=== PATIENT | male | born 1985 | race Caucasian/White ===

== ENCOUNTER 2025-08-12 13:06 | Inpatient (IN) | payer OTHER, SELFPAY ==
--- OUTSIDE RECORDS SUMMARY | 2025-08-10 13:29 | XMS_ITS | Encounter Summary ---
Author Organization [facility] Address [address] [place] [address] Care Team Providers Care [employer] Name Role Phone Physician, No Pcp Primary Care Provider Unavaila ble Reason for Visit * Reason Comments Suicidal Encounter Details Date Type Department Care Team (Late st Contact Info) Description 08/10/2025 1:29 PM EST - 08/12/2025 12:40 PM EST Emergency [facility] [address] [place] [id number] Dalia Starr MD [address] [place] [id number] Charleen Bertrand MD [address] [place] [id number] Fortunato Mccarthy MD [address] [place] [phone] Edin Iglesias MD [address] [place] [phone] Rochelle Álvarez MD [address] [place] [id number] Suicidal ideation (Primary Dx) [facility] Social History Tobacco Use Types Packs/Day Years Used Date Smoking Tobacco: Former Cigarettes Tobacco Cessation:Counseling Given: Not Answered Sex and Gender Information Value Date Recorded Sex Assigned at Not on file Legal Sex Male 5:09 PM EST Gender Identity Not on file Sexual Orientation Not on file documented as of this encounter Last Filed Vital Signs Vital Sign Reading Time Taken Comments Blood Pressure 126/75 08/12/2025 11:18 AM EST Pulse 72 08/12/2025 11:18 AM EST Temperature 36.9 C (98.4 F) 08/12/2025 11:18 AM EST Respiratory Rate 16 08/12/2025 11:18 AM EST Oxygen Saturation 99% 08/12/2025 11:18 AM EST Inhaled Oxygen Concentration - - Weight 90.7 kg (200 lb) 08/10/2025 1:19 PM EST Height 177.8 cm (5' 10 ) 08/10/2025 1:19 PM EST Body Mass Index 28.7 08/10/2025 1:19 PM EST documented in this encounter Functional Status * Calculated C-SSRS Risk Score (Lifetime/Recent) Answer Date of Assessment Author High Risk 08/12/2025 9:15 AM Kathryn Beltran RN * [place] Suicide Severity Rating Scale (Screener/Recent Self-Report) Question Answer Date of Assessment Author 1. Wish to be (Past 1 Month) Yes 9:15 AM Kathryn Burrows RN 2. Non-Specific Active Suici tasha Thoughts (Past 1 Month) Yes 08/12/2025 9:15 AM Jolanta Burrows RN 3. Active Suicidal Ideation with any Methods (Not Plan) Without Intent to Act (Past 1 Month) No 08/12/2025 9:15 AM Kathryn Beltran RN 4. Active Suicidal Ideation with Some Intent to Act, Without Specific Plan (Past 1 Month) Yes 08/12/2025 9:15 AM Kathryn Beltran RN 5. Active Suicidal Ideation with Specific Plan and Intent (Past 1 Month) Yes 08/12/2025 9:15 AM Kathryn Burrows RN 6. Suicidal Behavior (Lifetime) Yes 9:15 AM Kathryn Burrows RN 6. Suicidal Behavior (3 Months) Yes 9:15 AM Kathryn Burrows RN documented as of this encounter Medications at Time of Discharge atorvastatin (LIPITOR) 20 mg tablet Take 1 tablet (20 mg total) by mouth at bedtime. 06/16/2025 escitalopram (LEXAPRO) 20 mg tablet Take 1 tablet (20 mg total) by mouth 1 (one) time each day. 06/29/2025 hydrOXYzine HCL (ATARAX) 25 mg tablet Take 1 tablet (25 mg total) by mouth 2 (two) times a day if needed for anxiety. 04/12/2025 Lantus Solostar U-100 Insulin 100 unit/mL (3 mL) injection pen Inject 10 Units under the skin at bedtime. 08/06/2025 metFORMIN (GLUCOPHAGE) 1,000 mg tablet Take 1 tablet (1,000 mg total) by mouth 2 (two) times a day. 06/13/2025 mirtazapine (REMERON) 15 mg tablet Take 1 tablet (15 mg total) by mouth at bedtime. 06/13/2025 documented as of this encounter Discharge Disposition Disposition Code Departure Means Destination [facility] M 3 documented in this encounter Progress Notes * Chitra Gutierrez LCSW - 08/12/2025 8:57 AM EST BED FOUND- Patient has been accepted to [facility], , Dr. Man Quiros, ETA to be determined during Nurse to Nurse. * Rochelle Álvarez MD - 08/12/2025 8:01 AM EST ED Course as of 08/12/25 1247 Sun Aug 10, 2025 1429 Consulted poison control regarding ingestion of five [address] Xanax. Poison control in agreement with laboratory and diagnostic tests ordered. Continuous pulse oximetry to monitor for respiratory depression. Serial EKGs every 2 hours with target QTc less than 500 and QRS less than 100. Patient magnesium of 2. [SO] 1430 ECG 12 lead Interpretation of ECG sinus bradycardia with ventricular rate of 57 bpm. Normal NV at 174, normal QRS at 94. QTc of 443. No acute ST elevations or depressions that would be suggestive of a STEMI or n-STEMI [SO] 1501 Spoke with TESARO [address] [place] [address] and verified that patient was last seen in clinic on 08/06 and given 60mg in person and given 2 60 mg doses (one for 08/07 and 08/08) Considering ingestion, will hold off on methadone until medically cleared. [SO] 1642 Reevaluated patient at this time- stable and maintaining airway, no respiratory depression [SO] 170 ECG 12 lead Second EKG continues to be sinus bradycardia with ventricular rate of 52 bpm. QRS stable at 92 and QTc stable at 460. No acute changes or ST elevations or depressions. [SO] 1754 Drug abuse screen 8a panel, urine(!) Positive for benzodiazepines and cannabinoids, both of which patient admit to [SO] 1754 Salicylate level Do not suspect acute salicylate ingestion [SO] 1754 Ethanol No acute alcohol ingestion [SO] 1755 - In agreement with diagnostic testing. In addition of this given the guidelines of magnesium [SO] 1759 ECG 12 lead Interpretation of EKG is sinus bradycardia with ventricular rate 56 bpm. QRS interval at 92, QTc of455. No ST elevations or depressions. At this time patient was repleted with magnesium, no signs ofrespiratory depression, physical exam unchanged and serial EKGs x 3 with normal QRS and QTc intervals-medically cleared for crisis evaluation [SO] 180 Urinalysis with reflex microscopic and culture Negative for infection [SO] 1805 Thyroid stimulating hormone with reflex to free t4 and free t3 stable [SO] 1805 Methadone, urine(!) Known positive with 60 mg dosing [SO] 1805 Buprenorphine screen, urine negative [SO] 1805 Phencyclidine, urine negative [SO] 1805 Comprehensive metabolic panel(!) No acute electrolyte derrangement, very mild transaminitis with AST at 61 and ALT at 102. Patient without abdominal pain, reports occasional alcohol use. [SO] 185 Patient will be signout to oncoming care team pending crisis evaluation [SO] 1906 SO from ABEL Bueno: hx anxiety and depression, took [address], SI attempt, no hx attempts in past, called poison control, got 3 EKGs, medically cleared, crisis saw him, he is voluntaryadmit, bed search status, takes methadone, last dosed Monday, not giving today, she will order for tomorrow, no other home meds, stopped his lexapro [RG] MonAug 11, 2025 0146 Signed out pending bed search for SI [EK] 0205 Patient signed out to Dr. Bertrand pending bed search [RG] 0802 Home meds ordered. No acute needs during my shift. Patient's care was handed over to the oncoming provider. [EK] 1011 Patient signed out to me - pending bed placement. NAD and HDS. [OR] 1700 Patient awaiting for bed/vital stable no active complaint [MZ] MonAug 12, 2025 0613 No acute needs during my shift. Patient's care was handed over to the oncoming provider. [EK] 0710 Voluntary psych hold. Awaiting bed. [AK] 0848 Patient was sleeping. I awakened him to assess. He is in no distress, resting. Feels comfortable. Awaiting placement. [AK] 0929 Has been accepted to [facility] [AK] ED Course User Index [AK] Rochelle Álvarez MD [EK] Charleen Bertrand MD [MZ] Edin Iglesias MD [OR] Fortunato Mccarthy MD [RG] Dalia Starr MD [SO] ABEL Heller Clinical Impressions as of 08/12/25 1247 Suicidal ideation Send to Specialty Department 1. Suicidal ideation Procedures * Charleen Bertrand MD - 08/12/2025 6:17 AM EST Amine Fodaile This patient's care was signed out to me by the offgoing provider. Please see her/his note for further details regarding initial presentation, history of present illness, physical exam, and medical decision making. At time of signout, the following was pending: Voluntary psychiatric bed placement ED Course as of 08/12/25 0617 Sun Aug 10, 2025 1429 Consulted poison control regarding ingestion of five [address] Xanax. Poison control in agreement with laboratory and diagnostic tests ordered. Continuous pulse oximetry to monitor for respiratory depression. Serial EKGs every 2 hours with target QTc less than 500 and QRS less than 100. Patient magnesium of 2. [SO] 1430 ECG 12 lead Interpretation of ECG sinus bradycardia with ventricular rate of 57 bpm. Normal NV at 174, normal QRS at 94. QTc of 443. No acute ST elevations or depressions that would be suggestive of a STEMI or n-STEMI [SO] 1501 Spoke with TESARO [address], [place] and verified that patient was last seen in clinic on 08/06 and given 60mg in person and given 2 60 mg doses (one for 08/07 and 08/08) Considering ingestion, will hold off on methadone until medically cleared. [SO] 1642 Reevaluated patient at this time- stable and maintaining airway, no respiratory depression [SO] 1701 ECG 12 lead Second EKG continues to be sinus bradycardia with ventricular rate of 52 bpm. QRS stable at 92 and QTc stable at 460. No acute changes or ST elevations or depressions. [SO] 1754 Drug abuse screen 8a panel, urine(!) Positive for benzodiazepines and cannabinoids, both of which patient admit to [SO] 1754 Salicylate level Do not suspect acute salicylate ingestion [SO] 1754 Ethanol No acute alcohol ingestion [SO] 1755 - In agreement with diagnostic testing. In addition of this given the guidelines of magnesium [SO] 1759 ECG 12 lead Interpretation of EKG is sinus bradycardia with ventricular rate 56 bpm. QRS interval at 92, QTc of455. No ST elevations or depressions. At this time patient was repleted with magnesium, no signs ofrespiratory depression, physical exam unchanged and serial EKGs x 3 with normal QRS and QTc intervals-medically cleared for crisis evaluation [SO] 1805 Urinalysis with reflex microscopic and culture Negative for infection [SO] 1805 Thyroid stimulating hormone with reflex to free t4 and free t3 stable [SO] 1805 Methadone, urine(!) Known positive with 60 mg dosing [SO] 1805 Buprenorphine screen, urine negative [SO] 1805 Phencyclidine, urine negative [SO] 1805 Comprehensive metabolic panel(!) No acute electrolyte derrangement, very mild transaminitis with AST at 61 and ALT at 102. Patient without abdominal pain, reports occasional alcohol use. [SO] 185 Patient will be signout to oncoming care team pending crisis evaluation [SO] 1906 SO from ABEL Bueno: hx anxiety and depression, took [address], SI attempt, no hx attempts in past, called poison control, got 3 EKGs, medically cleared, crisis saw him, he is voluntaryadmit, bed search status, takes methadone, last dosed Monday, not giving today, she will order for tomorrow, no other home meds, stopped his lexapro [RG] MonAug 11, 2025 0146 Signed out pending bed search for SI [EK] 0205 Patient signed out to Dr. Bertrand pending bed search [RG] 0802 Home meds ordered. No acute needs during my shift. Patient's care was handed over to the oncoming provider. [EK] 1011 Patient signed out to ne - pending bed placement. NAD and HDS. [OR] 1700 Patient awaiting for bed/vital stable no active complaint [MZ] MonAug 12, 2025 0613 No acute needs during my shift. [facility] [EK] ED Course User Index [EK] Charleen Bertrand MD [MZ] Edin Iglesias MD [OR] Fortunato Mccarthy MD [RG] Dalia Starr MD [SO] ABEL Heller Clinical Impressions as of 08/12/25 0617 Suicidal ideation No orders to display Labs Reviewed METHADONE SCREEN, URINE - Abnormal Result Value Methadone Screen, Urine Positive (*) DRUG ABUSE SCREEN 8A PANEL, URINE - Abnormal Amphetamine Screen, Ur Negative Barbiturate Screen, Ur Negative Benzodiazepine Screen, Ur Positive (*) Cocaine Screen, Ur Negative Opiate Screen, Ur Negative Cannabinoid (THC) Screen, Ur Positive (*) Oxycodone Screen, Ur Negative Fentanyl, Ur Negative Narrative: Assay cutoffs: Amphetamines 1000 ng/mL Barbiturates 200 ng/mL Benzodiazepines 200 ng/mL Cocaine 300 ng/mL Fentanyl 1 ng/mL Opiates 300 ng/mL Oxycodone 100 ng/mL THC 50 ng/mL Semi-quantitative assay for screening purposes only. Unconfirmed screening result should not be used for non-medical purposes. *ALTERNATE METHOD CONFIRMATION DONE UPON REQUEST ONLY* COMPREHENSIVE METABOLIC PANEL - Abnormal Sodium 139 Potassium 3.9 Chloride 102 CO2 27 Anion Gap 10 Glucose 103 (*) BUN 11 Creatinine 0.89 eGFR 110 BUN/Creatinine Ratio 12.4 Calcium 8.1 (*) AST (SGOT) 61 (*) ALT (SGPT) 102 (*) Alkaline Phosphatase 58 Total Protein 6.7 Albumin 4.3 Total Bilirubin 0.2 ACETAMINOPHEN LEVEL - Abnormal Acetaminophen Level <2.0 (*) CBC WITH AUTO DIFFERENTIAL - Abnormal WBC 8.4 RBC 4.50 Hemoglobin 12.7 (*) Hematocrit 37.5 (*) MCV 82.6 MCH 28.0 MCHC 33.9 RDW 12.6 Platelets 295 MPV 11.0 NRBC 0.0 NRBC Absolute 0.00 Neutrophils Relative 77.4 Lymphocytes Relative 16.0 Monocytes Relative 5.0 Eosinophils Relative 0.7 Basophils Relative 0.5 Immature Granulocytes Relative 0.4 Neutrophils Absolute 6.46 Lymphocytes Absolute 1.34 Monocytes Absolute 0.42 Eosinophils Absolute 0.06 Basophils Absolute 0.04 Immature Granulocytes Absolute 0.03 MAGNESIUM - Abnormal Magnesium 1.6 (*) POCT GLUCOSE, BLOOD - Abnormal Glucose POCT 115 (*) POCT GLUCOSE, BLOOD - Abnormal Glucose POCT 113 (*) PHENCYCLIDINE, URINE - Normal PCP Scrn, Ur Negative BUPRENORPHINE SCREEN, URINE - Normal Buprenorphine Screen Urine Negative Narrative: Assay cutoff 5 ng/mL Semi-quantitative assay for screening purposes only. Unconfirmed screening result should not be used for non-medical purposes. *ALTERNATE METHOD CONFIRMATION DONE UPON REQUEST ONLY* THYROID STIMULATING HORMONE WITH REFLEX TO FREE T4 AND FREE T3 - Normal TSH 0.82 ETHANOL - Normal Ethanol Level <3 SALICYLATE LEVEL - Normal Salicylate Level <3.0 URINALYSIS WITH REFLEX MICROSCOPIC AND CULTURE - Normal Specific [place] Urine 1.011 pH, Urine 7.5 Leukocytes, Urine Negative Nitrite, Urine Negative Protein, Urine Trace Glucose, Urine Negative Ketones, Urine Negative Urobilinogen, Urine 0.2 Bilirubin, Urine Negative Blood, Urine Negative POCT GLUCOSE, BLOOD - Normal Glucose POCT 88 POCT GLUCOSE, BLOOD - Normal Glucose POCT 90 URINALYSIS WITH REFLEX MICROSCOPIC AND CULTURE Narrative: The following orders were created for panel order Urinalysis with reflex microscopic and culture. Procedure Abnormality Status --------- ------ Urinalysis with reflex ...[[id number]] Normal Final result Soriano urine culture tube[[id number]] Final result Please view results for these tests on the individual orders. CBC AND DIFFERENTIAL Narrative: The following orders were created for panel order CBC and differential. Procedure Abnormality Status --------- ------ CBC auto differential[[id number]] Abnormal Final result Please view results for these tests on the individual orders. Clinical Impression(s): Final diagnoses: [R45.983] Suicidal ideation Send to Specialty Department Previous Medications ATORVASTATIN (LIPITOR) 20 MG TABLET Take 1 tablet (20 mg total) by mouth at bedtime. ESCITALOPRAM (LEXAPRO) 20 MG TABLET Take 1 tablet (20 mg total) by mouth 1 (one) time each day. HYDROXYZINE HCL (ATARAX) 25 MG TABLET Take 1 tablet (25 mg total) by mouth 2 (two) times a day if needed for anxiety. LANTUS SOLOSTAR U-100 INSULIN 100 UNIT/ML (3 ML) INJECTION PEN Inject 10 Units under the skin at bedtime. METFORMIN (GLUCOPHAGE) 1,000 MG TABLET Take 1 tablet (1,000 mg total) by mouth 2 (two) times a day. MIRTAZAPINE (REMERON) 15 MG TABLET Take 1 tablet (15 mg total) by mouth at bedtime. ED Medication Administration from 08/10/2025 1307 to 08/12/2025 0617 Date/Time Order Dose Route Action Action by 08/10/2025 1800 EST magnesium oxide (MAG-OX) tablet 400 mg 400 mg oral Given Alleano, A 08/11/2025 0905 EST magnesium oxide (MAG-OX) tablet 400 mg 400 mg oral Given Maco, K 08/11/2025 0904 EST methadone (METHADOSE) dispersible tablet 60 mg 60 mg oral Given Maco, K 08/11/20252158 EST atorvastatin (LIPITOR) tablet 20 mg 20 mg oral Given Thomas, B 08/11/2025 0906 EST escitalopram (LEXAPRO) tablet 20 mg 20 mg oral Given Maco, K 08/11/2025 0904 EST metFORMIN (GLUCOPHAGE) tablet 1,000 mg 1,000 mg oral Given Maco, K 08/11/2025 215 EST metFORMIN (GLUCOPHAGE) tablet 1,000 mg 1,000 mg oral Given Thomas, B 08/11/20252158 EST mirtazapine (REMERON) tablet 15 mg 15 mg oral Given Thomas, B 08/11/20252222 EST insulin glargine (LANTUS) injection 10 Units 10 Units subcutaneous Not Given Thomas, B 08/11/20252222 EST insulin glargine (LANTUS) injection 10 Units -- subcutaneous Held by provider Mone Iglesias 08/12/2025 2100 EST insulin glargine (LANTUS) injection 10 Units -- subcutaneous Dose Auto Held Mone Iglesias 08/13/2025 2100 EST insulin glargine (LANTUS) injection 10 Units -- subcutaneous Dose Auto Held Mone Iglesias 08/14/2025 2100 EST insulin glargine (LANTUS) injection 10 Units -- subcutaneous Dose Auto Held Mone Iglesias 08/15/2025 2100 EST insulin glargine (LANTUS) injection 10 Units -- subcutaneous Dose Auto Held (none) 08/16/2025 2100 EST insulin glargine (LANTUS) injection 10 Units -- subcutaneous Dose Auto Held (none) 08/17/2025 2100 EST insulin glargine (LANTUS) injection 10 Units -- subcutaneous Dose Auto Held (none) 08/11/2025 0805 EST insulin lispro injection 1-6 Units -- subcutaneous Not Given Maco, K 08/11/2025 1311 EST insulin lispro injection 1-6 Units -- subcutaneous Not Given Maco, K 08/11/2025 1728 EST insulin lispro injection 1-6 Units -- subcutaneous Not Given Maco, K * Charleen Bertrand MD - 08/11/2025 8:47 AM EST Marlene Ceballos This patient's care was signed out to me by the offgoing provider. Please see her/his note for further details regarding initial presentation, history of present illness, physical exam, and medical decision making. At time of signout, the following was pending: See ED course below ED Course as of 08/12/25 0613 Amira Aug 10, 2025 1429 Consulted poison control regarding ingestion of five [address] Xanax. Poison control in agreement with laboratory and diagnostic tests ordered. Continuous pulse oximetry to monitor for respiratory depression. Serial EKGs every 2 hours with target QTc less than 500 and QRS less than 100. Patient magnesium of 2. [SO] 1430 ECG 12 lead Interpretation of ECG sinus bradycardia with ventricular rate of 57 bpm. Normal NV at 174, normal QRS at 94. QTc of 443. No acute ST elevations or depressions that would be suggestive of a STEMI or n-STEMI [SO] 1501 Spoke with TESARO [address], [place] and verified that patient was last seen in clinic on 08/06 and given 60mg in person and given 2 60 mg doses (one for 08/07 and 08/08) Considering ingestion, will hold off on methadone until medically cleared. [SO] 1642 Reevaluated patient at this time- stable and maintaining airway, no respiratory depression [SO] 1701 ECG 12 lead Second EKG continues to be sinus bradycardia with ventricular rate of 52 bpm. QRS stable at 92 and QTc stable at 460. No acute changes or ST elevations or depressions. [SO] 1754 Drug abuse screen 8a panel, urine(!) Positive for benzodiazepines and cannabinoids, both of which patient admit to [SO] 1754 Salicylate level Do not suspect acute salicylate ingestion [SO] 1754 Ethanol No acute alcohol ingestion [SO] 1755 - In agreement with diagnostic testing. In addition of this given the guidelines of magnesium [SO] 1759 ECG 12 lead Interpretation of EKG is sinus bradycardia with ventricular rate 56 bpm. QRS interval at 92, QTc of455. No ST elevations or depressions. At this time patient was repleted with magnesium, no signs of respiratory depression, physical exam unchanged and serial EKGs x 3 with normal QRS and QTc intervals- medically cleared for crisis evaluation [SO] 1805 Urinalysis with reflex microscopic and culture Negative for infection [SO] 1805 Thyroid stimulating hormone with reflex to free t4 and free t3 stable [SO] 1805 Methadone, urine(!) Known positive with 60 mg dosing [SO] 1805 Buprenorphine screen, urine negative [SO] 1805 Phencyclidine, urine negative [SO] 1805 Comprehensive metabolic panel(!) No acute electrolyte derrangement, very mild transaminitis with AST at 61 and ALT at 102. Patient without abdominal pain, reports occasional alcohol use. [SO] 185 Patient will be signout to oncoming care team pending crisis evaluation [SO] 1906 SO from ABEL Bueno: hx anxiety and depression, took [address], SI attempt, no hx attempts in past, called poison control, got 3 EKGs, medically cleared, crisis saw him, he is voluntaryadmit, bed search status, takes methadone, last dosed Monday, not giving today, she will order for tomorrow, no other home meds, stopped his lexapro [RG] MonAug 11, 2025 0146 Signed out pending bed search for SI [EK] 0205 Patient signed out to Dr. Bertrand pending bed search [RG] 0802 Home meds ordered. No acute needs during my shift. Patient's care was handed over to the oncoming provider. [EK] 1011 Patient signed out to ne - pending bed placement. NAD and HDS. [OR] 1700 Patient awaiting for bed/vital stable no active complaint [MZ] MonAug 12, 2025 0613 No acute needs during my shift. [facility]. [EK] ED Course User Index [EK] Charleen Bertrand MD [MZ] Edin Iglesias MD [OR] Fortunato Mccarthy MD [RG] Dalia Starr MD [SO] ABEL Heller Clinical Impressions as of 08/12/25 0613 Suicidal ideation No orders to display Labs Reviewed METHADONE SCREEN, URINE - Abnormal Result Value Methadone Screen, Urine Positive (*) DRUG ABUSE SCREEN 8A PANEL, URINE - Abnormal Amphetamine Screen, Ur Negative Barbiturate Screen, Ur Negative Benzodiazepine Screen, Ur Positive (*) Cocaine Screen, Ur Negative Opiate Screen, Ur Negative Cannabinoid (THC) Screen, Ur Positive (*) Oxycodone Screen, Ur Negative Fentanyl, Ur Negative Narrative: Assay cutoffs: Amphetamines 1000 ng/mL Barbiturates 200 ng/mL Benzodiazepines 200 ng/mL Cocaine 300 ng/mL Fentanyl 1 ng/mL Opiates 300 ng/mL Oxycodone 100 ng/mL THC 50 ng/mL Semi-quantitative assay for screening purposes only. Unconfirmed screening result should not be used for non-medical purposes. *ALTERNATE METHOD CONFIRMATION DONE UPON REQUEST ONLY* COMPREHENSIVE METABOLIC PANEL - Abnormal Sodium 139 Potassium 3.9 Chloride 102 CO2 27 Anion Gap 10 Glucose 103 (*) BUN 11 Creatinine 0.89 eGFR 110 BUN/Creatinine Ratio 12.4 Calcium 8.1 (*) AST (SGOT) 61 (*) ALT (SGPT) 102 (*) Alkaline Phosphatase 58 Total Protein 6.7 Albumin 4.3 Total Bilirubin 0.2 ACETAMINOPHEN LEVEL - Abnormal Acetaminophen Level <2.0 (*) CBC WITH AUTO DIFFERENTIAL - Abnormal WBC 8.4 RBC 4.50 Hemoglobin 12.7 (*) Hematocrit 37.5 (*) MCV 82.6 MCH 28.0 MCHC 33.9 RDW 12.6 Platelets 295 MPV 11.0 NRBC 0.0 NRBC Absolute 0.00 Neutrophils Relative 77.4 Lymphocytes Relative 16.0 Monocytes Relative 5.0 Eosinophils Relative 0.7 Basophils Relative 0.5 Immature Granulocytes Relative 0.4 Neutrophils Absolute 6.46 Lymphocytes Absolute 1.34 Monocytes Absolute 0.42 Eosinophils Absolute 0.06 Basophils Absolute 0.04 Immature Granulocytes Absolute 0.03 MAGNESIUM - Abnormal Magnesium 1.6 (*) POCT GLUCOSE, BLOOD - Abnormal Glucose POCT 115 (*) PHENCYCLIDINE, URINE - Normal PCP Scrn, Ur Negative BUPRENORPHINE SCREEN, URINE - Normal Buprenorphine Screen Urine Negative Narrative: Assay cutoff 5 ng/mL Semi-quantitative assay for screening purposes only. Unconfirmed screening result should not be used for non-medical purposes. *ALTERNATE METHOD CONFIRMATION DONE UPON REQUEST ONLY* THYROID STIMULATING HORMONE WITH REFLEX TO FREE T4 AND FREE T3 - Normal TSH 0.82 ETHANOL - Normal Ethanol Level <3 SALICYLATE LEVEL - Normal Salicylate Level <3.0 URINALYSIS WITH REFLEX MICROSCOPIC AND CULTURE - Normal Specific [place] Urine 1.011 pH, Urine 7.5 Leukocytes, Urine Negative Nitrite, Urine Negative Protein, Urine Trace Glucose, Urine Negative Ketones, Urine Negative Urobilinogen, Urine 0.2 Bilirubin, Urine Negative Blood, Urine Negative URINALYSIS WITH REFLEX MICROSCOPIC AND CULTURE Narrative: The following orders were created for panel order Urinalysis with reflex microscopic and culture. Procedure Abnormality Status --------- ------ Urinalysis with reflex ...[[id number]] Normal Final result Soriano urine culture tube[[id number]] Final result Please view results for these tests on the individual orders. CBC AND DIFFERENTIAL Narrative: The following orders were created for panel order CBC and differential. Procedure Abnormality Status --------- ------ CBC auto differential[[id number]] Abnormal Final result Please view results for these tests on the individual orders. Clinical Impression(s): Final diagnoses: [R42.299] Suicidal ideation Send to Specialty Department Previous Medications ATORVASTATIN (LIPITOR) 20 MG TABLET Take 1 tablet (20 mg total) by mouth at bedtime. ESCITALOPRAM (LEXAPRO) 20 MG TABLET Take 1 tablet (20 mg total) by mouth 1 (one) time each day. HYDROXYZINE HCL (ATARAX) 25 MG TABLET Take 1 tablet (25 mg total) by mouth 2 (two) times a day if needed for anxiety. LANTUS SOLOSTAR U-100 INSULIN 100 UNIT/ML (3 ML) INJECTION PEN Inject 10 Units under the skin at bedtime. METFORMIN (GLUCOPHAGE) 1,000 MG TABLET Take 1 tablet (1,000 mg total) by mouth 2 (two) times a day. MIRTAZAPINE (REMERON) 15 MG TABLET Take 1 tablet (15 mg total) by mouth at bedtime. ED Medication Administration from 08/10/2025 1307 to 08/11/2025 0847 Date/Time Order Dose Route Action Action by 08/10/2025 1800 EST magnesium oxide (MAG-OX) tablet 400 mg 400 mg oral Given Don Nassar 08/11/2025 0805 EST insulin lispro injection 1-6 Units -- subcutaneous Not Given Rajani Dewey * ABEL Heller - 08/10/2025 5:02 PM EST HPI Chief Complaint Patient presents with Suicidal HPI Mr. Ceballos is a 39 year old male with anxiety, depression, opiate use now on methadone reporting suicidal ideation with plan of taking benzodiazepines. Patient reports that he has acted on suicidal ideation before. Patient was previously hospitalized in [facility] however came to this area seeking help. Patient reports that this morning he took [address] and each of 5 mg tablets for a total of 25 mg. Ingestion at approximately 9am. No other ingestions of substances. Dosed methadone 60 mg daily, last dose on Monday. Denies any IV drug use, reports frequent Xanax use that he purchases from the street. Reports tobacco use approximately 3 cigarettes as well as occasional marijuana use and alcohol use. Denies any visual, auditory, tactile hallucinations. No homicidal ideation. Clinical Opiate Withdrawal Scale Total Score: 0 [place] Coma Scale Score: 15 Patient History Medical History[1] Surgical History[2] Family History[3] Social History Tobacco Use Smoking status: Former Types: Cigarettes Smokeless tobacco: Not on file Substance Use Topics Alcohol use: Not on file Drug use: Not on file Review of Systems Review of Systems Physical Exam ED Triage Vitals Temp Pulse Resp BP -- -- -- -- SpO2 Temp src Heart Rate Source Patient Position -- -- -- -- BP Location FiO2 (%) -- -- Physical Exam Vitals and nursing note reviewed. Constitutional: General: He is not in acute distress. Appearance: Normal appearance. He is normal weight. He is not ill-appearing, toxic-appearing or diaphoretic. HENT: Head: Normocephalic and atraumatic. Right Ear: External ear normal. There is no impacted cerumen. Left Ear: External ear normal. There is no impacted cerumen. Nose: Nose normal. No congestion or rhinorrhea. Eyes: General: No scleral icterus. Right eye: No discharge. Left eye: No discharge. Extraocular Movements: Extraocular movements intact. Conjunctiva/sclera: Conjunctivae normal. Pupils: Pupils are equal, round, and reactive to light. Cardiovascular: Rate and Rhythm: Normal rate and regular rhythm. Pulses: Normal pulses. Heart sounds: Normal heart sounds. No murmur heard. No friction rub. No gallop. Pulmonary: Effort: Pulmonary effort is normal. No respiratory distress. Breath sounds: Normal breath sounds. No stridor. No wheezing, rhonchi or rales. Chest: Chest wall: No tenderness. Abdominal: General: Abdomen is flat. There is no distension. Palpations: Abdomen is soft. Tenderness: There is no abdominal tenderness. There is no guarding or rebound. Hernia: No hernia is present. Musculoskeletal: General: No swelling, tenderness, deformity or signs of injury. Normal range of motion. Cervical back: Normal range of motion. No rigidity or tenderness. Right lower leg: No edema. Left lower leg: No edema. Comments: Independently ambulatory with no assistive devices Skin: General: Skin is warm and dry. Capillary Refill: Capillary refill takes less than 2 seconds. Coloration: Skin is not jaundiced or pale. Findings: No bruising, erythema, lesion or rash. Neurological: Mental Status: He is alert and oriented to person, place, and time. Mental status is at baseline. Motor: No weakness. Gait: Gait normal. Comments: No fasciculations, no ankle clonus ED Course & [facility] ED Course as of 08/11/252011 Adrian Aug 10, 2025 1429 Consulted poison control regarding ingestion of five [address] Xanax[address] Poison control in agreement with laboratory and diagnostic tests ordered. Continuous pulse oximetry to monitor for respiratory depression. Serial EKGs every 2 hours with target QTc less than 500 and QRS less than 100. Patient magnesium of 2. [SO] 1430 ECG 12 lead Interpretation of ECG sinus bradycardia with ventricular rate of 57 bpm. Normal NV at 174, normal QRS at 94. QTc of 443. No acute ST elevations or depressions that would be suggestive of a STEMI or n-STEMI [SO] 1501 Spoke with TESARO [address] [place] [address] and verified that patient was last seen in clinic on 08/06 and given 60mg in person and given 2 60 mg doses (one for 08/07 and 08/08) Considering ingestion, will hold off on methadone until medically cleared. [SO] 1642 Reevaluated patient at this time- stable and maintaining airway, no respiratory depression [SO] 1701 ECG 12 lead Second EKG continues to be sinus bradycardia with ventricular rate of 52 bpm. QRS stable at 92 and QTc stable at 460. No acute changes or ST elevations or depressions. [SO] 1754 Drug abuse screen 8a panel, urine(!) Positive for benzodiazepines and cannabinoids, both of which patient admit to [SO] 1754 Salicylate level Do not suspect acute salicylate ingestion [SO] 1754 Ethanol No acute alcohol ingestion [SO] 1755 - In agreement with diagnostic testing. In addition of this given the guidelines of magnesium [SO] 1759 ECG 12 lead Interpretation of EKG is sinus bradycardia with ventricular rate 56 bpm. QRS interval at 92, QTc of455. No ST elevations or depressions. At this time patient was repleted with magnesium, no signs ofrespiratory depression, physical exam unchanged and serial EKGs x 3 with normal QRS and QTc intervals-medically cleared for crisis evaluation [SO] 1805 Urinalysis with reflex microscopic and culture Negative for infection [SO] 1805 Thyroid stimulating hormone with reflex to free t4 and free t3 stable [SO] 1805 Methadone, urine(!) Known positive with 60 mg dosing [SO] 1805 Buprenorphine screen, urine negative [SO] 1805 Phencyclidine, urine negative [SO] 1805 Comprehensive metabolic panel(!) No acute electrolyte derrangement, very mild transaminitis with AST at 61 and ALT at 102. Patient without abdominal pain, reports occasional alcohol use. [SO] 1852 Patient will be signout to oncoming care team pending crisis evaluation [SO] 1906 SO from ABEL Bueno: hx anxiety and depression, took [address], SI attempt, no hx attempts in past, called poison control, got 3 EKGs, medically cleared, crisis saw him, he is voluntaryadmit, bed search status, takes methadone, last dosed Monday, not giving today, she will order for tomorrow, no other home meds, stopped his lexapro [RG] MonAug 11, 2025 0146 Signed out pending bed search for SI [EK] 0205 Patient signed out to Dr. Bertrand pending bed search [RG] 0802 Home meds ordered. No acute needs during my shift. Patient's care was handed over to the oncoming provider. [EK] 1011 Patient signed out to ne - pending bed placement. NAD and HDS. [OR] 1700 Patient awaiting for bed/vital stable no active complaint [MZ] ED Course User Index [EK] Charleen Bertrand MD [MZ] Edin Iglesias MD [OR] Fortunato Mccarthy MD [RG] Dalia Starr MD [SO] ABEL Heller Clinical Impressions as of 08/11/252011 Suicidal ideation Medical Decision Making Marlene is a 39-year-old male with history of opioid use disorder currently on methadone, anxiety, and depression presenting today for evaluation of suicidal ideation ideation with ingestion of five [address] Xanax tablets for a total of 25 mg at approximately 9 AM. On physical exam he is in no acute distress and nontoxic-appearing. Independent interpretation of vital signs hemodynamically stable, bradycardia at 55 however this appears to be his baseline. Differential diagnosis includes but is not limited to suicidal ideation, toxic ingestion, benzodiazepine overdose. Does not appear to be in acute opioid withdrawal. He reports previous history of withdrawal and denies similar symptoms at this time. He has no physical complaints on exam. There are no neurological exam findings concerning for acute overdose, no fasciculations, no ankle clonus, normal deep tendon reflexes. No history of seizures or seizure- like activity today. Consulted poison control regarding recommendations-agreement in laboratory testing and diagnostic testing. Instructed to keep magnesium at 2, monitor with serial EKGs every 2 hours for total of 3 EKGs with target QTc less than 500 and target QRS less than 100. Confirmed methadone dosing of 60 mg last dose being 08/08. Considering acute ingestion of 25 mg of Xanax we will refrain from ordering methadone at this time. COWS scale, currently negative for signsof withdrawal. Will continue to monitor. Patient at this time medically cleared, will refer to crisis. Procedures ABEL Heller 08/10/25 1531 ABEL Heller 08/10/25 1805 ABEL Heller 08/10/25 1857 ABEL Heller 08/10/25 1912 ABEL Heller 08/11/25 1337 [1] Past Medical History: Diagnosis Date Diabetes (CMS/HCC V24, CMS/HCC V28) Hepatitis C Substance abuse (CMS/HCC V24, CMS/HCC V28) [2] History reviewed. No pertinent surgical history. [3] No family history on file. ABEL Heller 08/11/252011 * Leonila Su RN - 08/10/2025 1:22 PM EST Pt comes to ER with thoughts of taking benzos to kill himself. Pt states he has a plan and has acted on them in the past. Pt endorses taking [address] xanax (unsure of dose) and weed this AM. Pt takesmethadone-hasn't taken since Monday. Goes to [facility] [address] [place] [address] * Dalia Starr MD - 08/10/2025 1:07 PM EST ED Course as of 08/11/25 0205 Sun Aug 10, 2025 1429 Consulted poison control regarding ingestion of five [address] Xanax[address] Poison control in agreement with laboratory and diagnostic tests ordered. Continuous pulse oximetry to monitor for respiratory depression. Serial EKGs every 2 hours with target QTc less than 500 and QRS less than 100. Patient magnesium of 2. [SO] 1430 ECG 12 lead Interpretation of ECG sinus bradycardia with ventricular rate of 57 bpm. Normal NV at 174, normal QRS at 94. QTc of 443. No acute ST elevations or depressions that would be suggestive of a STEMI or n-STEMI [SO] 1501 Spoke with TESARO [address] [place] [address] and verified that patient was last seen in clinic on 08/06 and given 60mg in person and given 2 60 mg doses (one for 08/07 and 08/08) Considering ingestion, will hold off on methadone until medically cleared. [SO] 1642 Reevaluated patient at this time- stable and maintaining airway, no respiratory depression [SO] 1701 ECG 12 lead Second EKG continues to be sinus bradycardia with ventricular rate of 52 bpm. QRS stable at 92 and QTc stable at 460. No acute changes or ST elevations or depressions. [SO] 1754 Drug abuse screen 8a panel, urine(!) Positive for benzodiazepines and cannabinoids, both of which patient admit to [SO] 1754 Salicylate level Do not suspect acute salicylate ingestion [SO] 1754 Ethanol No acute alcohol ingestion [SO] 1755 - In agreement with diagnostic testing. In addition of this given the guidelines of magnesium [SO] 1759 ECG 12 lead Interpretation of EKG is sinus bradycardia with ventricular rate 56 bpm. QRS interval at 92, QTc of455. No ST elevations or depressions. At this time patient was repleted with magnesium, no signs ofrespiratory depression, physical exam unchanged and serial EKGs x 3 with normal QRS and QTc intervals-medically cleared for crisis evaluation [SO] 1805 Urinalysis with reflex microscopic and culture Negative for infection [SO] 1805 Thyroid stimulating hormone with reflex to free t4 and free t3 stable [SO] 1805 Methadone, urine(!) Known positive with 60 mg dosing [SO] 1805 Buprenorphine screen, urine negative [SO] 1804 Phencyclidine, urine negative [SO] 1804 Comprehensive metabolic panel(!) No acute electrolyte derrangement, very mild transaminitis with AST at 61 and ALT at 102. Patient without abdominal pain, reports occasional alcohol use. [SO] 1852 Patient will be signout to oncoming care team pending crisis evaluation [SO] 190 SO from ABEL Bueno: hx anxiety and depression, took [address], SI attempt, no hx attempts in past, called poison control, got 3 EKGs, medically cleared, crisis saw him, he is voluntaryadmit, bed search status, takes methadone, last dosed Monday, not giving today, she will order for tomorrow, no other home meds, stopped his lexapro [RG] MonAug 11, 2025 0146 Signed out pending bed search for SI [EK] 0205 Patient signed out to Dr. Bertrand pending bed search [RG] ED Course User Index [EK] Charleen Bertrand MD [RG] Dalia Starr MD [SO] ABEL Heller Clinical Impressions as of 08/11/25204 Suicidal ideation Dalia Starr MD 08/11/25205 * Charleen Bertrand MD - 08/10/2025 1:07 PM EST This patient's care was signed out to me by the offgoing provider. Please see her/his note for further details regarding initial presentation, history of present illness, physical exam, and medical decision making. At time of signout, the following was pending: Inpatient psychiatric placement for suicidal ideation ED Course as of 08/12/25 0757 Sun Aug 10, 2025 1429 Consulted poison control regarding ingestion of five [address]anax[address] Poison control in agreement with laboratory and diagnostic tests ordered. Continuous pulse oximetry to monitor for respiratory depression. Serial EKGs every 2 hours with target QTc less than 500 and QRS less than 100. Patient magnesium of 2. [SO] 1430 ECG 12 lead Interpretation of ECG sinus bradycardia with ventricular rate of 57 bpm. Normal NV at 174, normal QRS at 94. QTc of 443. No acute ST elevations or depressions that would be suggestive of a STEMI or n-STEMI [SO] 1501 Spoke with TESARO [address], [place] and verified that patient was last seen in clinic on 08/06 and given 60mg in person and given 2 60 mg doses (one for 08/07 and 08/08) Considering ingestion, will hold off on methadone until medically cleared. [SO] 1642 Reevaluated patient at this time- stable and maintaining airway, no respiratory depression [SO] 1701 ECG 12 lead Second EKG continues to be sinus bradycardia with ventricular rate of 52 bpm. QRS stable at 92 and QTc stable at 460. No acute changes or ST elevations or depressions. [SO] 1754 Drug abuse screen 8a panel, urine(!) Positive for benzodiazepines and cannabinoids, both of which patient admit to [SO] 1754 Salicylate level Do not suspect acute salicylate ingestion [SO] 1754 Ethanol No acute alcohol ingestion [SO] 1755 - In agreement with diagnostic testing. In addition of this given the guidelines of magnesium [SO] 1759 ECG 12 lead Interpretation of EKG is sinus bradycardia with ventricular rate 56 bpm. QRS interval at 92, QTc of455. No ST elevations or depressions. At this time patient was repleted with magnesium, no signs ofrespiratory depression, physical exam unchanged and serial EKGs x 3 with normal QRS and QTc intervals-medically cleared for crisis evaluation [SO] 1805 Urinalysis with reflex microscopic and culture Negative for infection [SO] 1805 Thyroid stimulating hormone with reflex to free t4 and free t3 stable [SO] 1805 Methadone, urine(!) Known positive with 60 mg dosing [SO] 1805 Buprenorphine screen, urine negative [SO] 1805 Phencyclidine, urine negative [SO] 1805 Comprehensive metabolic panel(!) No acute electrolyte derrangement, very mild transaminitis with AST at 61 and ALT at 102. Patient without abdominal pain, reports occasional alcohol use. [SO] 185 Patient will be signout to oncoming care team pending crisis evaluation [SO] 1906 SO from ABEL Bueno: hx anxiety and depression, took [address], SI attempt, no hx attempts in past, called poison control, got 3 EKGs, medically cleared, crisis saw him, he is voluntaryadmit, bed search status, takes methadone, last dosed Monday, not giving today, she will order for tomorrow, no other home meds, stopped his lexapro [RG] MonAug 11, 2025 0146 Signed out pending bed search for SI [EK] 0205 Patient signed out to Dr. Bertrand pending bed search [RG] 0802 Home meds ordered. No acute needs during my shift. Patient's care was handed over to the oncoming provider. [EK] 1011 Patient signed out to ne - pending bed placement. NAD and HDS. [OR] 1700 Patient awaiting for bed/vital stable no active complaint [MZ] MonAug 12, 2025 0613 No acute needs during my shift. Patient's care was handed over to the oncoming provider. [EK] 0710 Voluntary psych hold. Awaiting bed. [AK] ED Course User Index [AK] Rochelle Álvarez MD [EK] Charleen Bertrand MD [MZ] Edin Iglesias MD [OR] Fortunato Mccarthy MD [RG] Dalia Starr MD [SO] ABEL Heller Clinical Impressions as of 08/12/25 0757 Suicidal ideation No orders to display Labs Reviewed METHADONE SCREEN, URINE - Abnormal Result Value Methadone Screen, Urine Positive (*) DRUG ABUSE SCREEN 8A PANEL, URINE - Abnormal Amphetamine Screen, Ur Negative Barbiturate Screen, Ur Negative Benzodiazepine Screen, Ur Positive (*) Cocaine Screen, Ur Negative Opiate Screen, Ur Negative Cannabinoid (THC) Screen, Ur Positive (*) Oxycodone Screen, Ur Negative Fentanyl, Ur Negative Narrative: Assay cutoffs: Amphetamines 1000 ng/mL Barbiturates 200 ng/mL Benzodiazepines 200 ng/mL Cocaine 300 ng/mL Fentanyl 1 ng/mL Opiates 300 ng/mL Oxycodone 100 ng/mL THC 50 ng/mL Semi-quantitative assay for screening purposes only. Unconfirmed screening result should not be used for non-medical purposes. *ALTERNATE METHOD CONFIRMATION DONE UPON REQUEST ONLY* COMPREHENSIVE METABOLIC PANEL - Abnormal Sodium 139 Potassium 3.9 Chloride 102 CO2 27 Anion Gap 10 Glucose 103 (*) BUN 11 Creatinine 0.89 eGFR 110 BUN/Creatinine Ratio 12.4 Calcium 8.1 (*) AST (SGOT) 61 (*) ALT (SGPT) 102 (*) Alkaline Phosphatase 58 Total Protein 6.7 Albumin 4.3 Total Bilirubin 0.2 ACETAMINOPHEN LEVEL - Abnormal Acetaminophen Level <2.0 (*) CBC WITH AUTO DIFFERENTIAL - Abnormal WBC 8.4 RBC 4.50 Hemoglobin 12.7 (*) Hematocrit 37.5 (*) MCV 82.6 MCH 28.0 MCHC 33.9 RDW 12.6 Platelets 295 MPV 11.0 NRBC 0.0 NRBC Absolute 0.00 Neutrophils Relative 77.4 Lymphocytes Relative 16.0 Monocytes Relative 5.0 Eosinophils Relative 0.7 Basophils Relative 0.5 Immature Granulocytes Relative 0.4 Neutrophils Absolute 6.46 Lymphocytes Absolute 1.34 Monocytes Absolute 0.42 Eosinophils Absolute 0.06 Basophils Absolute 0.04 Immature Granulocytes Absolute 0.03 MAGNESIUM - Abnormal Magnesium 1.6 (*) POCT GLUCOSE, BLOOD - Abnormal Glucose POCT 115 (*) POCT GLUCOSE, BLOOD - Abnormal Glucose POCT 113 (*) PHENCYCLIDINE, URINE - Normal PCP Scrn, Ur Negative BUPRENORPHINE SCREEN, URINE - Normal Buprenorphine Screen Urine Negative Narrative: Assay cutoff 5 ng/mL Semi-quantitative assay for screening purposes only. Unconfirmed screening result should not be used for non-medical purposes. *ALTERNATE METHOD CONFIRMATION DONE UPON REQUEST ONLY* THYROID STIMULATING HORMONE WITH REFLEX TO FREE T4 AND FREE T3 - Normal TSH 0.82 ETHANOL - Normal Ethanol Level <3 SALICYLATE LEVEL - Normal Salicylate Level <3.0 URINALYSIS WITH REFLEX MICROSCOPIC AND CULTURE - Normal Specific [place] Urine 1.011 pH, Urine 7.5 Leukocytes, Urine Negative Nitrite, Urine Negative Protein, Urine Trace Glucose, Urine Negative Ketones, Urine Negative Urobilinogen, Urine 0.2 Bilirubin, Urine Negative Blood, Urine Negative POCT GLUCOSE, BLOOD - Normal Glucose POCT 88 POCT GLUCOSE, BLOOD - Normal Glucose POCT 90 URINALYSIS WITH REFLEX MICROSCOPIC AND CULTURE Narrative: The following orders were created for panel order Urinalysis with reflex microscopic and culture. Procedure Abnormality Status --------- ------ Urinalysis with reflex ...[[id number]] Normal Final result Soriano urine culture tube[[id number]] Final result Please view results for these tests on the individual orders. CBC AND DIFFERENTIAL Narrative: The following orders were created for panel order CBC and differential. Procedure Abnormality Status --------- ------ CBC auto differential[[id number]] Abnormal Final result Please view results for these tests on the individual orders. Clinical Impression(s): Final diagnoses: [R45.851] Suicidal ideation Send to Specialty Department Previous Medications ATORVASTATIN (LIPITOR) 20 MG TABLET Take 1 tablet (20 mg total) by mouth at bedtime. ESCITALOPRAM (LEXAPRO) 20 MG TABLET Take 1 tablet (20 mg total) by mouth 1 (one) time each day. HYDROXYZINE HCL (ATARAX) 25 MG TABLET Take 1 tablet (25 mg total) by mouth 2 (two) times a day if needed for anxiety. LANTUS SOLOSTAR U-100 INSULIN 100 UNIT/ML (3 ML) INJECTION PEN Inject 10 Units under the skin at bedtime. METFORMIN (GLUCOPHAGE) 1,000 MG TABLET Take 1 tablet (1,000 mg total) by mouth 2 (two) times a day. MIRTAZAPINE (REMERON) 15 MG TABLET Take 1 tablet (15 mg total) by mouth at bedtime. ED Medication Administration from 08/10/2025 1307 to 08/12/2025 0757 Date/Time Order Dose Route Action Action by 08/10/2025 1800 EST magnesium oxide (MAG-OX) tablet 400 mg 400 mg oral Given Alleano, A 08/11/2025 0905 EST magnesium oxide (MAG-OX) tablet 400 mg 400 mg oral Given Maco, K 08/11/2025 09 EST methadone (METHADOSE) dispersible tablet 60 mg 60 mg oral Given Maco, K 08/11/20252158 EST atorvastatin (LIPITOR) tablet 20 mg 20 mg oral Given Thomas, B 08/11/2025 0906 EST escitalopram (LEXAPRO) tablet 20 mg 20 mg oral Given Maco, K 08/11/2025 0904 EST metFORMIN (GLUCOPHAGE) tablet 1,000 mg 1,000 mg oral Given Maco, K 08/11/20252158 EST metFORMIN (GLUCOPHAGE) tablet 1,000 mg 1,000 mg oral Given Thomas, B 08/11/20252158 EST mirtazapine (REMERON) tablet 15 mg 15 mg oral Given Thomas, B 08/11/2025 2223 EST insulin glargine (LANTUS) injection 10 Units 10 Units subcutaneous Not Given Thomas, B 08/11/2025 2223 EST insulin glargine (LANTUS) injection 10 Units -- subcutaneous Held by provider Mone Iglesias 08/12/2025 2100 EST insulin glargine (LANTUS) injection 10 Units -- subcutaneous Dose Auto Held Mone Iglesias 08/13/2025 2100 EST insulin glargine (LANTUS) injection 10 Units -- subcutaneous Dose Auto Held Mone Iglesias 08/14/2025 2100 EST insulin glargine (LANTUS) injection 10 Units -- subcutaneous Dose Auto Held Kelsie, Mone 08/15/2025 2100 EST insulin glargine (LANTUS) injection 10 Units -- subcutaneous Dose Auto Held (none) 08/16/2025 2100 EST insulin glargine (LANTUS) injection 10 Units -- subcutaneous Dose Auto Held (none) 08/17/2025 2100 EST insulin glargine (LANTUS) injection 10 Units -- subcutaneous Dose Auto Held (none) 08/11/2025 0805 EST insulin lispro injection 1-6 Units -- subcutaneous Not Given Maco, K 08/11/2025 1311 EST insulin lispro injection 1-6 Units -- subcutaneous Not Given Maco, K 08/11/2025 1728 EST insulin lispro injection 1-6 Units -- subcutaneous Not Given Maco, K Charleen Bertrand MD 08/11/25 2210 Charleen Bertrand MD 08/12/25 0758 documented in this encounter Consult Notes * Ellie Vickers - 08/11/2025 10:57 AM EST Images from the original note were not included. Behavioral Health Services - Mental Status Update Important times Time assessment started: 08/11/25 10:00 am Time of disposition: 08/11/25 10:30 am Location: [facility] Emergency Department Consulted case with: Chitra Gutierrez LCSW Insurance information: Insurance: [employer] Verified by: [employer] Reason for Consultation / Presenting Problem: Marlene Ceballos is being seen today for a 24 hour re-evaluation due to their state wide bed search being exhausted. Mr. Ceballos is a 39 year old male with anxiety, depression, opiate use now on methadone reporting suicidal ideation with plan of taking benzodiazepines. Patient reports that he has acted on suicidal ideation before. Patient was previously hospitalized in [facility] however came to this area seeking help. Patient reports that this morning he took [address] and each of 5 mg tablets for a total of 25 mg. Ingestionat approximately 9am. No other ingestions of substances. Dosed methadone 60 mg daily, last dose on . Denies any IV drug use, reports frequent Xanax use that he purchases from the street. Reports tobacco use approximately 3 cigarettes as well as occasional marijuana use and alcohol use. Collaterals, contact information, and engagement level: Therapist: None reported Psychiatrist: None reported PCP: Unknown Family: None reported Other: Ex-Maricruz chaves: Mental Status Speech: WNL Eye Contact: WNL Motor Activity: WNL Mood: Depressed Affect: Flat Sleep: WNL Appetite: WNL Memory: WNL Attention / Concentration: WNL Behavior: Cooperative Hallucinations: None Delusions: None Thought Content: WNL SI: Stated he overdosed on medications a few days ago. HI: Denied Thought Process: Helpless and hopeless. Orientation Impairment: Place, Person, and Situation Insight: Fair Judgment: Fair Impulse Control: Fair Medications: Scheduled Meds: MEDSSCHEDULED[1] Continuous Infusions: MEDSCONTINUOUS[2] PRN Meds: MEDSPRN[3] Risk Assessment: Self-Harm: None Suicidal Behavior: Plan Homicidal Behavior: None Physical Assault: None Physical Aggression: None Property Damage: None Verbal Aggression: None Family history of suicide: None reported Protective Factors: Has friends who are supportive Risk Factors: Homeless Suicidal took pills Substance use Suicide Risk: Based on patient's history and current presentation, their level of risk for intentional lethal harm is considered High Safety Plan Completed: yes Going inpatient for safety Interventions: Used active listing Response to interventions: Marlene was engaged in the conversation. DSM-5TR Diagnosis: F32.9 Unspecified Depressive Disorder F11.20 Opiate use, severe F14.20 Cocaine use, moderate Plan: Marlene reported he overdosed on xanax 10 tabs however, he told the doctor he took 5 tabs. He is at low risk for harm to other. He continues to be an inpatient bed search for stabilization and medication evaluation. He is on a section 12 involuntary. Recommendations were discussed with requesting provider. It was a pleasure to assist Marlene Ceballos here at [facility]. This report is written and finalized by: Ellie Vickers MS Behavioral Health Specialist [facility] (Tel): [phone] / : [phone] [1] atorvastatin, 20 mg, oral, Nightly escitalopram, 20 mg, oral, Daily insulin glargine, 10 Units, subcutaneous, Nightly insulin lispro, 1-6 Units, subcutaneous, TID with meals magnesium oxide, 400 mg, oral, Daily metFORMIN, 1,000 mg, oral, BID methadone, 60 mg, oral, Daily mirtazapine, 15 mg, oral, Nightly [2] [3] PRN medications: dextrose 50%, dextrose 50%, dextrose, dextrose, glucagon injection, hydrOXYzine HCL ONY Sierra - 08/10/2025 7:12 PM ESTAssociated Order(s): IP CONSULT TO SHANK BREAKER Images from the original note were not included. Behavioral Health Services - Crisis Assessment Important times Time of arrival: 13:29 Time of referral: 14:24 Time of readiness: 17:55 Time assessment started: 18:05 Time of disposition: 19:05 Location: Emergency Room (ER) Consulted case with: CLARI Bellamy Insurance information: Insurance: [facility] Verified by: Virtual Moira - Jay Sierra Reason for Consultation / Presenting Problem: Marlene Ceballos is being seen today for a consultive service at the request of Dalia Starr MD to assess risk and identify appropriate level of care. Patient arrived reporting SI with a plan to overdose on benzos. He was taken to [facility] by his ex-partner after having been found by her wandering on the streets. During assessment, patient reported that he and his ex had an argument about a week ago, which is when he was unable to stay with her and has beenstaying with a friend in the [place] area since. Patient reported that he has been having increased depression and discussed life stressors such as having relapsed, insecure housing, struggling relationship dynamics, and not having taken his mental health medications in about a week. He denied current SI and stated that he will not harm himself should he leave, however he feels he would benefit from getting his meds re-evaluated and working on his mental health. Ex reported that patient was in a sober home until he was kicked out 3 days ago for relapsing and that patient had broken up with ex a year ago after he cheated on her, but that they still communicate daily. She stated that he is not at baseline and has been acting increasingly confused. Per ex, patient is not fully there when she communicates with him and he messaged ex's daughter asking for money yesterday. Patient denied HI/AH/VH. History of Present Illness: Marlene is a 39 y.o. male with Chief Complaint Patient presents with Suicidal Social/Educational History: Guardian - if Yes, provide contact information: No Status: No State Agency Involvement: None Gio's Order: No Marital Status: Alternative Placement Details: None Living Situation for patient: Homeless - Ex reported that patient is not welcome to live with her as she lives with her daughter and her parents, who will not allow patient in the home. Household Members/Age: Patient is unhoused and does not live with anybody. Friendships/Family/Social Peer Support/Relationships: Patient reported that most of his family is abroad and he does not have many social supports. Ex-partner reported to speaking with patient daily. Highest level of education: GED Comments (Include Learning Needs): None Occupation: Unemployed - looking for work Employment/Extracurricular Activities/Hobbies: Unknown Limitations of Daily Activities: None Strengths/Supports: Patient is help-seeking. Patient is able to advocate for himself. Patient is able to access his basic needs. Patient has a history of sobriety. Patient has social support in his ex. Collaterals, contact information, and engagement level: Therapist: None reported Psychiatrist: None reported PCP: Unknown Family: None reported Other: Ex-gaudencioMaricruz baird: - Ex was able to discuss concerns regarding patient and his mental health. Mental Status Speech: Slowed Eye Contact: WNL Motor Activity: Slowed Mood: Depressed Affect: Flat Sleep: WNL Appetite: Fair Memory: Mild Impairment Attention / Concentration: WNL Behavior: Cooperative and Calm Appearance: Hallucinations: None Delusions: None Thought Content: WNL SI: Denied HI: Denied Thought Process: WNL Orientation Impairment: None Insight: Fair Judgment: Poor Impulse Control: Poor Substance Use History (Including family history): Patient reported that he began to use cannabis at 14 years old, benzos and heroin at 24 years old, and cocaine at 31 years old. He reported to having been sober for six months prior to relapsing a week ago. Per patient, he has been taking 3-4 xanax and smoking cocaine 2x/daily for the past week. Hestated that he thinks he last used cocaine a few days ago. Patient reported that his father and sister have drank alcohol. He stated his dad no longer drinks. Utox Results: Utox was positive for benzos, cannabis, and methadone. BAL was normal. Substance Use Treatment History: Patient reported extensive substance use treatment history including detox, CSS, TSS, and sober home. He is currently receiving methadone treatment. Mental Health Treatment History: Outpatient Mental Health Treatment: Patient reported that he last had outpatient mental health support (therapist and psychiatrist) 8 years ago. He stated that he currently does not have outpatient mental health treatment. Previous or Current Psychological Diagnosis: Patient reported to having been diagnosed with depression, anxiety, and PTSD. Prior Psychiatric Hospitalizations/Residential Treatment Facilities: Patient reported to having a history of psychiatric inpatient hospitalizations, including [facility]. He stated that his most recent inpatient hospitalization was within the last year. Other Comments Regarding Mental Health Treatment History: None Mental Health Concerns in Family: Patient reported that his mom had anxiety. Trauma History: Patient reported that he had an accident as a child where his skull cracked and he needed surgery. He denied other history of trauma and abuse. Medications: Scheduled Meds: MEDSSCHEDULED[1] Continuous Infusions: MEDSCONTINUOUS[2] PRN Meds: MEDSPRN[3] Risk Assessment: Self-Harm: None Suicidal Behavior: Past, Ideation, and Plan Homicidal Behavior: None Physical Assault: None Physical Aggression: None Property Damage: None Verbal Aggression: None Family history of suicide: None reported Protective Factors: Patient is help-seeking. Patient is able to advocate for himself. Patient is able to access his basic needs. Patient has a history of sobriety. Patient has social support in his ex. Risk Factors: Patient has unstable housing and income. Patient recently relapsed on substances. Patient has been struggling with social relationships. Suicide Risk: Based on patient's history and current presentation, their level of risk for intentional lethal harm is considered Low Safety Plan Completed: no No safety plan completed due to patient being an inpatient bed search. Interventions: Risk/crisis assessment, active listening, empathetic listening, support Response to interventions: Patient was cooperative, engaged, and aligned with speaking with [facility]. DSM-5TR Diagnosis: F32.9 Unspecified Depressive Disorder F41.9 Unspecified Anxiety Disorder Plan: Based on the information above, patient would benefit from a voluntary inpatient psychiatric admission for safety and containment, mood stabilization, medication management, therapeutic milieu, and coordination with outpatient and community supports. Upon discharge, patient would benefit from stepping down to [facility] to work on his substance use. Should patient decide he would like to discharge, he does not need to be re- evaluated by behavioralhealth. Recommendations were discussed with requesting provider. It was a pleasure to assist Marlene Tucker here at [facility]. This report is written and finalized by: Jay Sierra Behavioral Health Specialist [facility] (Tel): [phone] / : [phone] [1] magnesium oxide, 400 mg, oral, Daily [START ON 08/11/2025] methadone, 60 mg, oral, Daily [2] [3] documented in this encounter Miscellaneous Notes * ED Bed Hold Note - Beronica Mcgee RN - 08/10/2025 3:27 PM EST Bed: NV-H3 Expected date: 08/09/25 Expected time: Means of arrival: Comments: YH 3 pt documented in this encounter Plan of Treatment Not on file documented as of this encounter Procedures Procedure Name Priority Date/Time Associated Diagnosis Comments POCT GLUCOSE BLOOD Routine 08/12/2025 8: 27 AM EST ECG ANNOTATED 08/12/2025 POCT GLUCOSE BLOOD Routine 08/11/2025 10 :02 PM EST POCT GLUCOSE BLOOD Routine 08/11/2025 5: 16 PM EST POCT GLUCOSE BLOOD Routine 08/11/2025 12 :24 PM EST POCT GLUCOSE BLOOD Routine 08/11/2025 8: 01 AM EST ECG 12-LEAD Routine 08/10/2025 5:59 PM EST URINALYSIS WITH REFLEX MICROSCOPIC AND CULTURE STAT 08/10/2025 4:25 PM EST SORIANO URINE CULTURE TUBE STAT 08/10/2025 4:25 PM EST DRUG ABUSE SCREEN 8A PANEL, URINE STAT 08/10/2025 4:25 PM EST BUPRENORPHINE SCREEN, URINE STAT 08/10/2025 4:25 PM EST METHADONE SCREEN, URINE STAT 08/10/2025 4:25 PM EST PHENCYCLIDINE, URINE STAT 08/10/2025 4:25 PM EST URINALYSIS WITH REFLEX MICROSCOPIC AND CULTURE STAT 08/10/2025 4:25 PM EST ECG 12-LEAD Routine 08/10/2025 4:17 PM EST THYROID STIMULATING HORMONE WITH REFLEX TO FREE T4 AND FREE T3 STAT 08/10/2025 2:29 PM EST CBC WITH AUTO DIFFERENTIAL STAT 08/10/2025 2:29 PM EST CBC AND DIFFERENTIAL STAT 08/10/2025 2:29 PM EST MAGNESIUM STAT Add-on 08/10/2025 2:29 PM EST ETHANOL STAT 08/10/2025 2:29 PM EST ACETAMINOPHEN LEVEL Timed 08/10/2025 2 :29 PM EST SALICYLATE LEVEL Timed 08/10/2025 2:29 PM EST COMPREHENSIVE METABOLIC PANEL STAT 08/10/2025 2:29 PM EST ECG 12-LEAD Routine 08/10/2025 2:11 PM EST documented in this encounter Results * POCT Glucose, blood (08/12/2025 8:27 AM EST) Glucose POCT 77 70 - 100 mg/dL 08/12/2025 8:27 AM EST [facility] Blood Capillary blood specimen / Unknown 08/12/2025 8:27 AM EST 08/12/2025 8:28 AM EST us Rochelle Álvarez MD LAB POINT OF CARE T EST DOCKED DEVICE UNSOLICITED RESULTS Final Result [facility] [address] [address], [place] [phone] * ECG-Annotated (08/12/2025) us Provider Onbase MD ECG ORDERABLES Final Result * (ABNORMAL) POCT Glucose, blood (08/11/2025 10:02 PM EST) Glucose POCT 113(H) 70 - 100 mg/dL 08/11/2025 10:04 PM EST [facility] Blood Capillary blood specimen / Unknown 08/11/2025 10:02 PM EST 08/11/2025 10:05 PM EST us Edin Iglesias MD LAB POINT OF CARE TEST DOCKED DEVICE UNSOLICITED RESULTS Final Result Performing Organization Address [facility] de Phone Number [facility] [address] [place] [address], * POCT Glucose, blood (08/11/2025 5:16 PM EST) Glucose POCT 90 70 - 100 mg/dL 08/11/2025 5:17 PM EST [facility] Blood Capillary blood specimen / Unknown 08/11/2025 5:16 PM EST 08/11/2025 5:18 PM EST Edin Iglesias MD LAB POINT OF CARE TEST DOCKED DEVICE UNSOLICITED RESULTS Final Result Performing Organization Address [facility] de Phone Number [facility] [address] [place] [address], * POCT Glucose, blood (08/11/2025 12:24 PM EST) Glucose POCT 88 70 - 100 mg/dL 08/11/2025 12:24 PM EST [facility] Blood Capillary blood specimen / Unknown 08/11/2025 12:24 PM EST 08/11/2025 12:26 PM EST Fortunato Mccarthy MD LAB POINT OF CARE TEST DOCKED DEVICE UNSOLICITED RESULTS Final Result Performing Organization Address [facility] Co de Phone Number [facility] [address] [place] [address], [place] [phone] * (ABNORMAL) POCT Glucose, blood (08/11/2025 8:01 AM EST) Glucose POCT 115(H) 70 - 100 mg/dL 08/11/2025 8:01 AM EST [facility] Blood Capillary blood specimen / Unknown 08/11/2025 8:01 AM EST 08/11/2025 8:03 AM EST Charleen Bertrand MD LAB POINT OF CARE TE ST DOCKED DEVICE UNSOLICITED RESULTS Final Result Performing Organization Address City/[facility]/ZIP Co de Phone Number [facility] [address] [place] [address], [place] [phone] * ECG 12 lead (08/10/2025 5:59 PM EST) Ventricular Rate ECG 56 BPM GEMUSE Atrial Rate 56 BPM GEMUSE P-R Interval 188 ms GEMUSE QRS Duration 92 ms GEMUSE Q-T Interval 472 ms GEMUSE QTc 455 ms GEMUSE P Wave [place] 51 degrees GEMUSE R [place] 43 degrees GEMUSE T [place] 38 degrees GEMUSE ECG Interpretation Sinus bradycardia Otherwise normal ECG When compared with ECG of 10-AUG-2025 16:17, (unconfirmed) No significant change was found Confirmed by MARCIA ESPAÑA ([id number]) on 08/12/2025 9:32:57 AM GEMUSE 08/10/2025 5:59 PM EST 08/12/2025 9:32 AM EST Janice ROMAN ECG ORDERABLES Final Result Performing Organization Address [facility] Co de Phone Number GEMUSE * Soriano urine culture tube (08/10/2025 4:25 PM EST) Pathologist [facility] Extra Tube Hold for add-ons. 08/10/2025 6:02 PM EST [facility] Comment:Auto resulted. Urine Urine specimen obtained by clean catch procedure / Unknown Non-blood Collection / Unknown 08/10/2025 4:25 PM EST 08/10/2025 4:55 PM EST Janice ROMAN LAB URINE ORDERABLES Final R esult Performing Organization Address City/[facility]/ZIP Co de Phone Number [facility] [address] [place] [address], [place] [phone] * Urinalysis with reflex microscopic and culture (08/10/2025 4:25 PM EST) Specific [place] Urine 1.011 1.003 - 1.030 LAB URINALYSIS - AUTOMATED METHOD 08/10/2025 5:01 PM [facility] pH, Urine 7.5 5.0 - 8.0 pH LAB URINALYSIS - AUTOMATED METHOD 08/10/2025 5:01 PM [facility] Leukocytes, Urine Negative Negative LAB URINALYSIS - AUTOMATED METHOD 08/10/2025 5:01 PM [facility] Nitrite, Urine Negative Negative LAB URINALYSIS - AUTOMATED METHOD 08/10/2025 5:01 PM [facility] Protein, Urine Trace <=Trace mg/dL LAB URINALYSIS - AUTOMATED METHOD 08/10/2025 5:01 PM [facility] Glucose, Urine Negative Negative mg/dL LAB URINALYSIS - AUTOMATED METHOD 08/10/2025 5:01 PM [facility] Ketones, Urine Negative Negative mg/dL LAB URINALYSIS - AUTOMATED METHOD 08/10/2025 5:01 PM [facility] Urobilinogen, Urine 0.2 0.2 - 1.0 mg/dL LAB URINALYSIS - AUTOMATED METHOD 08/10/2025 5:01 PM [facility] Bilirubin, Urine Negative Negative LAB URINALYSIS - AUTOMATED METHOD 08/10/2025 5:01 PM [facility] Blood, Urine Negative Negative LAB URINALYSIS - AUTOMATED METHOD 08/10/2025 5:01 PM [facility] Urine Urine specimen obtained by clean catch procedure / Unknown Non-blood Collection / Unknown 08/10/2025 4:25 PM EST 08/10/2025 4:55 PM EST Janice ROMAN LAB URINE ORDERABLES Final R esult [facility] [address] [place] [address], * (ABNORMAL) Drug abuse screen 8a panel, urine (08/10/2025 4:25 PM EST) Amphetamine Screen, Ur Negative Negative 08/10/2025 5:19 PM EST [facility] Comment:Certain OTC medicati ons containing ephedrine, phenylephrine, pseudoephedrine and phenylpropanolamine can cause false positive results. Barbiturate Screen, Ur Negative Negative 08/10/2025 5:19 PM EST [facility] Benzodiazepine Screen, Ur Positive(A ) Negative 08/10/2025 5:19 PM [facility] Cocaine Screen, Ur Negative Negative 2024 5:19 PM [facility] Opiate Screen, Ur Negative Negative 025 5:19 PM EST [facility] Cannabinoid (THC) Screen, Ur Positive(A ) Negative 08/10/2025 5:19 PM EST [facility] Comment:Specimens from patie nts taking pantoprazole sodium (Protonix) have been shown to produce false positive results. Oxycodone Screen, Ur Negative Negative 07/14 5:19 PM EST [facility] Fentanyl, Ur Negative Negative 08/10/2025 5:19 PM [facility] Urine Urine specimen obtained by clean catch procedure / Unknown Non-blood Collection / Unknown 08/10/2025 4:25 PM EST 08/10/2025 4:55 PM EST [facility] - 08/10/2025 5:19 PM EST Assay cutoffs: Amphetamines 1000 ng/mL Barbiturates 200 ng/mL Benzodiazepines 200 ng/mL Cocaine 300 ng/mL Fentanyl 1 ng/mL Opiates 300 ng/mL Oxycodone 100 ng/mL THC 50 ng/mL Semi-quantitative assay for screening purposes only. Unconfirmed screening result should not be used for non-medical purposes. *ALTERNATE METHOD CONFIRMATION DONE UPON REQUEST ONLY* Janice Bueno MA LAB URINE ORDERABLES Final R esult Performing Organization Address City/[facility]/ZIP Co de Phone Number [facility] [address] [place] [address], [place] [phone] * Buprenorphine screen, urine (08/10/2025 4:25 PM EST) Buprenorphine Screen Urine Negative Negative 08/10/2025 5:18 PM EST [facility] Urine Urine specimen obtained by clean catch procedure / Unknown Non-blood Collection / Unknown 08/10/2025 4:25 PM EST 08/10/2025 4:55 PM EST Narrative [facility] - 08/10/2025 5:18 PM EST Assay cutoff 5 ng/mL Semi-quantitative assay for screening purposes only. Unconfirmed screening result should not be used for non-medical purposes. *ALTERNATE METHOD CONFIRMATION DONE UPON REQUEST ONLY* Janice Bueno [facility] URINE ORDERABLES Final R esult Performing Organization Address City/[facility]/ZIP Co de Phone Number [facility] [address] [place] [address], [place] [phone] * Phencyclidine, urine (08/10/2025 4:25 PM EST) PCP Scrn, Ur Negative Negative 08/10/2025 5:19 PM EST [facility] Comment: Assay cutoff 25 ng/mL Semi-quantitative assay for screening purposes only. Unconfirmed screening result should not be used for non-medical purposes. *ALTERNATE METHOD CONFIRMATION DONE UPON REQUEST ONLY* Urine Urine specimen obtained by clean catch procedure / Unknown Non-blood Collection / Unknown 08/10/2025 4:25 PM EST 08/10/2025 4:55 PM EST Janice ROMAN LAB URINE ORDERABLES Final R esult Performing Organization Address City/[facility]/ZIP Co de Phone Number [facility] [address] [place] [address], * (ABNORMAL) Methadone, urine (08/10/2025 4:25 PM EST) Pathologist [facility] Methadone Screen, Urine Positive( A) Negative 08/10/2025 5:18 PM EST [facility] Comment: Assay cutoff 300 ng/mL Semi-quantitative assay for screening purposes only. Unconfirmed screening result should not be used for non-medical purposes. *ALTERNATE METHOD CONFIRMATION DONE UPON REQUEST ONLY* Urine Urine specimen obtained by clean catch procedure / Unknown Non-blood Collection / Unknown 08/10/2025 4:25 PM EST 08/10/2025 4:55 PM EST Janice ROMAN LAB URINE ORDERABLES Final R esult Performing Organization Address City/[facility]/ZIP Co de Phone Number [facility] [address] [place] [address], * ECG 12 lead (08/10/2025 4:17 PM EST) [facility] Ventricular Rate ECG 54 BPM GEMUSE Atrial Rate 54 BPM GEMUSE P-R Interval 188 ms GEMUSE QRS Duration 92 ms GEMUSE Q-T Interval 486 ms GEMUSE QTc 460 ms GEMUSE P Wave [place] -11 degrees GEMUSE R [place] 12 degrees GEMUSE T [place] 13 degrees GEMUSE ECG Interpretation Sinus bradycardia Nonspecific ST abnormality Abnormal ECG When compared with ECG of 10-AUG-2025 14:11, (unconfirmed) No significant change was found Confirmed by MARCIA ESPAÑA ([id number]) on 08/12/2025 9:27:23 AM GEMUSE 08/10/2025 4:17 PM EST 08/12/2025 9:27 AM EST Janice ROMAN ECG ORDERABLES Final Result G[facility] * (ABNORMAL) Magnesium (08/10/2025 2:29 PM EST) [facility] Magnesium 1.6(L) 1.9 - 2.6 mg/dL 08/10/2025 3:57 PM EST [facility] Blood Venous blood specimen / Unknown Venipuncture / Unknown 08/10/2025 2:29 PM EST 08/10/2025 3:09 PM EST Janice ROMAN LAB BLOOD ORDERABLES Final R esult [facility] [address] [place] [address], * (ABNORMAL) CBC auto differential (08/10/2025 2:29 PM EST) [facility] WBC 8.4 4.8 - 10.8 K/mcL LAB HEMETOLOGY METHOD 08/10/2025 3:30 PM [facility] RBC 4.50 4.50 - 5.50 M/mcL LAB HEMETOLOGY METHOD 08/10/2025 3:30 PM [facility] Hemoglobin 12.7(L) 13.5 - 17.5 g/dL LAB HEMETOLOGY METHOD 08/10/2025 3:30 PM [facility] Hematocrit 37.5(L) 42.0 - 54.0 % LAB HEMETOLOGY METHOD 08/10/2025 3:30 PM [facility] MCV 82.6 79.0 - 98.0 FL LAB HEMETOLOGY METHOD 08/10/2025 3:30 PM [facility] MCH 28.0 27.0 - 32.0 pcg LAB HEMETOLOGY METHOD 08/10/2025 3:30 PM EST [facility] MCHC 33.9 32.0 - 37.0 g/dL LAB HEMETOLOGY METHOD 08/10/2025 3:30 PM [facility] RDW 12.6 11.0 - 15.0 % LAB HEMETOLOGY METHOD 08/10/2025 3:30 PM [facility] Platelets 295 130 - 400 K/mcL LAB HEMETOLOGY METHOD 08/10/2025 3:30 PM [facility] MPV 11.0 7.0 - 11.0 FL LAB HEMETOLOGY METHOD 08/10/2025 3:30 PM [facility] NRBC 0.0 <1.0 % LAB HEMETOLOGY METHOD 08/10/2025 3:30 PM [facility] NRBC Absolute 0.00 <0.10 K/mcL LAB HEMETOLOGY METHOD 08/10/2025 3:30 PM [facility] Neutrophils Relative 77.4 % LAB HEMETOLOGY METHOD 08/10/2025 3:30 PM [facility] Lymphocytes Relative 16.0 % LAB HEMETOLOGY METHOD 08/10/2025 3:30 PM [facility] Monocytes Relative 5.0 % LAB HEMETOLOGY METHOD 08/10/2025 3:30 PM [facility] Eosinophils Relative 0.7 % LAB HEMETOLOGY METHOD 08/10/2025 3:30 PM [facility] Basophils Relative 0.5 % LAB HEMETOLOGY METHOD 08/10/2025 3:30 PM [facility] Immature Granulocytes Relative 0.4 % LAB HEMETOLOGY METHOD 08/10/2025 3:30 PM [facility] Neutrophils Absolute 6.46 1.50 - 7.00 K/mcL LAB HEMETOLOGY METHOD 08/10/2025 3:30 PM [facility] Lymphocytes Absolute 1.34 1.00 - 5.00 K/mcL LAB HEMETOLOGY METHOD 08/10/2025 3:30 PM EST [facility] Monocytes Absolute 0.42 0.20 - 1.00 K/mcL LAB HEMETOLOGY METHOD 08/10/2025 3:30 PM EST [facility] Eosinophils Absolute 0.06 0.00 - 0.50 K/mcL LAB HEMETOLOGY METHOD 08/10/2025 3:30 PM EST [facility] Basophils Absolute 0.04 0.00 - 0.20 K/mcL LAB HEMETOLOGY METHOD 08/10/2025 3:30 PM EST [facility] Immature Granulocytes Absolute 0.03 0.00 - 0.03 K/[facility] LAB HEMETOLOGY METHOD 08/10/2025 3:30 PM EST [facility] Blood Venous blood specimen / Unknown Venipuncture / Unknown 08/10/2025 2:29 PM EST 08/10/2025 3:09 PM EST Janice ROMAN LAB BLOOD ORDERABLES Final R esult [facility] [address] [place] [address], [place] [phone] * Salicylate level (08/10/2025 2:29 PM EST) Salicylate Level <3.0 2.0 - 29.0 mg/dL 08/10/2025 3:58 PM EST [facility] Blood Venous blood specimen / Unknown Venipuncture / Unknown 08/10/2025 2:29 PM EST 08/10/2025 3:09 PM EST Janice ROMAN LAB BLOOD ORDERABLES Final R esult [facility] [address] [place] [address], * (ABNORMAL) Acetaminophen level (08/10/2025 2:29 PM EST) Acetaminophen Level <2.0(L) 10.0 - 30.0 mcg/mL 08/10/2025 3:57 PM EST [facility] Blood Venous blood specimen / Unknown Venipuncture / Unknown 08/10/2025 2:29 PM EST 08/10/2025 3:09 PM EST Janice ROMAN LAB BLOOD ORDERABLES Final R esult [facility] [address] [place] [address], [place] [phone] * Ethanol (08/10/2025 2:29 PM EST) Pathologist [facility] [place] Ethanol Level <3 0 - 10 mg/dL 08/10/2025 3:58 PM EST [facility] Blood Venous blood specimen / Unknown Venipuncture / Unknown 08/10/2025 2:29 PM EST 08/10/2025 3:09 PM EST Janice ROMAN LAB BLOOD ORDERABLES Final R esult [facility] [address] [place] [address], [place] [phone] * (ABNORMAL) Comprehensive metabolic panel (08/10/2025 2:29 PM EST) Sodium 139 133 - 145 mmol/L 08/10/2025 3:57 PM EST [facility] Potassium 3.9 3.5 - 5.5 mmol/L 08/10/2025 3:57 PM EST [facility] Chloride 102 96 - 110 mmol/L 08/10/2025 3:57 PM EST [facility] CO2 27 21 - 32 mmol/L 08/10/2025 3:57 PM [facility] Anion Gap 10 3 - 11 08/10/2025 3:57 PM [facility] Glucose 103(H) 70 - 100 mg/dL 08/10/2025 3:57 PM [facility] BUN 11 5 - 25 mg/dL 08/10/2025 3:57 PM [facility] Creatinine 0.89 0.70 - 1.30 mg/dL 08/10/2025 3:57 PM [facility] eGFR 110 >=60 mL/min/1. 73m2 08/10/2025 3:57 PM [facility] Comment:Calculation based on the Chronic Kidney Disease Epidemiology Collaboration (CKD-EPI) equation refit without adjustment for race. BUN/Creatinine Ratio 12.4 08/10/2025 3:57 PM [facility] Calcium 8.1(L) 8.5 - 10.5 mg/dL 08/10/2025 3:57 PM [facility] AST (SGOT) 61(H) 10 - 42 unit/L 08/10/2025 3:57 PM [facility] ALT (SGPT) 102(H) 10 - 60 unit/L 08/10/2025 3:57 PM [facility] Alkaline Phosphatase 58 42 - 121 unit/L 08/10/2025 3:57 PM [facility] Total Protein 6.7 6.0 - 8.0 g/dL 08/10/2025 3:57 PM [facility] Albumin 4.3 3.2 - 5.0 g/dL 08/10/2025 3:57 PM [facility] Total Bilirubin 0.2 0.0 - 1.4 mg/dL 08/10/2025 3:57 PM [facility] Blood Venous blood specimen / Unknown Venipuncture / Unknown 08/10/2025 2:29 PM EST 08/10/2025 3:09 PM EST Janice ROMAN LAB BLOOD ORDERABLES Final R esult Performing Organization Address [facility]/ZIP Co de Phone Number [facility] [address] [place] [address], [place] [phone] * Thyroid stimulating hormone with reflex to free t4 and free t3 (08/10/2025 2:29 PM EST) TSH 0.82 0.40 - 4.00 mcIU/mL 08/10/2025 3:58 PM EST [facility] Blood Venous blood specimen / Unknown Venipuncture / Unknown 08/10/2025 2:29 PM EST 08/10/2025 3:09 PM EST Janice ROMAN LAB BLOOD ORDERABLES Final R esult Performing Organization Address City/[facility] Co de Phone Number [facility] [address] [place] [address], [place] [phone] * ECG 12 lead (08/10/2025 2:11 PM EST) Ventricular Rate ECG 57 BPM GEMUSE Atrial Rate 57 BPM GEMUSE P-R Interval 174 ms GEMUSE QRS Duration 94 ms GEMUSE Q-T Interval 456 ms GEMUSE QTc 443 ms GEMUSE P Wave [place] -18 degrees GEMUSE R [place] 16 degrees GEMUSE T [place] 21 degrees GEMUSE ECG Interpretation Sinus bradycardia Nonspecific ST abnormality Abnormal ECG No previous ECGs available Confirmed by MARCIA ESPAÑA ([id number]) on 08/12/2025 9:25:40 AM GEMUSE 08/10/2025 2:11 PM EST 08/12/2025 9:25 AM EST Janice ROMAN ECG ORDERABLES Final Result GEMUSE documented in this encounter Visit Diagnoses Diagnosis Suicidal ideation- Primary documented in this encounter Administered Medications Active Administered Medications - up to 3 most recent administrations Medication Order MAR Action Action Date Dose Rate Site atorvastatin (LIPITOR) tablet 20 mg 20 mg, oral, Nightly, First dose on 08/11/25 at 2100 Given 08/11/2025 9:59 PM EST 20 mg escitalopram (LEXAPRO) tablet 20 mg 20 mg, oral, Daily, First dose on Mon08/11/25 at 0900 Given 08/12/2025 9:07 AM EST 20 mg Given 08/11/2025 9:06 AM EST 20 mg magnesium oxide (MAG-OX) tablet 400 mg 400 mg, oral, Daily, First dose on Mon08/10/25 at 1642 Given 08/12/2025 9:07 AM EST 400 mg Given 08/11/2025 9:05 AM EST 400 mg Given 08/10/2025 6:00 PM EST 400 mg metFORMIN (GLUCOPHAGE) tablet 1,000 mg 1,000 mg, oral, 2 times daily, First dose on 08/11/25 at 0900 Given 08/12/2025 9:07 AM EST 1,000 mg Given 08/11/2025 9:59 PM EST 1,000 mg Given 08/11/2025 9:04 AM EST 1,000 mg methadone (METHADOSE) dispersible tablet 60 mg 60 mg, oral, Daily, First dose on Mon08/11/25 at 0900, Disperse total dose in ~120 mL of water, orange juice, or other acidic fruit beverage prior to administration; if insoluble excipients remain and do not entirely dissolve, add a small amount of liquid to cup and administer remaining mixture. Do not chew or swallow tablet before dispersing in liquid. Given 08/12/2025 9: 07 AM EST 60 mg Given 08/11/2025 9:04 AM EST 60 mg mirtazapine (REMERON) tablet 15 mg 15 mg, oral, Nightly, First dose on Mon08/11/25 at 2100 Given 08/11/2025 9:59 PM EST 15 mg documented in this encounter Historical Medications * This list may reflect changes made after this encounter. mirtazapine (REMERON) 15 mg tablet Take 1 tablet (15 mg total) by mouth at bedtime. 06/13/2025 metFORMIN (GLUCOPHAGE) 1,000 mg tablet Take 1 tablet (1,000 mg total) by mouth 2 (two) times a day. 06/13/2025 Lantus Solostar U-100 Insulin 100 unit/mL (3 mL) injection pen Inject 10 Units under the skin at bedtime. 08/06/2025 hydrOXYzine HCL (ATARAX) 25 mg tablet Take 1 tablet (25 mg total) by mouth 2 (two) times a day if needed for anxiety. 04/12/2025 escitalopram (LEXAPRO) 20 mg tablet Take 1 tablet (20 mg total) by mouth 1 (one) time each day. 06/29/2025 atorvastatin (LIPITOR) 20 mg tablet Take 1 tablet (20 mg total) by mouth at bedtime. 06/16/2025 added in this encounter Active and Recently Administered Medications Times are shown in EST. Scheduled Medication Order 08/10/2025 08/11/2025 08/12/2025 atorvastatin (LIPITOR) tablet 20 mg 20 mg, oral, Nightly, First dose on Mon08/11/25 at 2100 2159 (Given - Provider: Minda Thomas RN) 2100 (Due) escitalopram (LEXAPRO) tablet 20 mg 20 mg, oral, Daily, First dose on Mon08/11/25 at 0900 0906 (Given - Provider: Kathryn Dewey RN) 0907 (Given - Provider: Kathryn Dewey RN) insulin glargine (LANTUS) injection 10 Units 10 Units, subcutaneous, Nightly, First dose on Mon08/11/25 at 2100, Notify provider: -If patient is currently or will become NPO -If TPN was or will be interrupted or discontinued -For approval to hold long acting insulin, On hold since Mon08/11/2025 at 2223 until manually unheld 2222 (Not Given - Provider: Minda Thomas RN - Reason: See Provider Order - Comment: Held by provider)2223 (Held by provider - Provider: Edin Iglesias MD - Reason: Other) 2100 (Dose Auto Held - Provider: Edin Iglesias MD) insulin lispro injection 1-6 Units 1-6 Units, subcutaneous, 3 times daily with meals, First dose on Mon08/11/25 at 0800, Indication: Total Daily Dose (TDD) LESS than 40 units Correction Scale: Low Dose Administer with meal and/or mealtime dose of insulin to correct high blood glucose If mealtime insulin dose not given (e.g. patient NPO or not eating), still administer correction factor for high blood glucose 0805 (Not Given - Provider: Kathryn Dewey RN - Reason: Order parameters not met)1311 (Not Given - Provider: Kathryn Dewey RN - Reason: Order parameters not met)1728 (Not Given - Provider: Kathryn Dewey RN - Reason: Order parameters not met) 0913 (Not Given - Provider: Kathryn Dewey RN - Reason: Order parameters not met)1200 (Due)1700 (Due) magnesium oxide (MAG-OX) tablet 400 mg 400 mg, oral, Daily, First dose on Mon08/10/25 at 1642 1800 (Given - Provider: Jessy Nassar RN - Comment: Pt eating) 0905 (Given - Provider: Kathryn Dewey RN) 0907 (Given - Provider: Kathryn Dewey RN) metFORMIN (GLUCOPHAGE) tablet 1,000 mg 1,000 mg, oral, 2 times daily, First dose on Mon08/11/25 at 0900 0904 (Given - Provider: Kathryn Dewey RN)2159 (Given - Provider: Minda Thomas RN) 0907 (Given - Provider: Kathryn Dewey RN)2100 (Due) methadone (METHADOSE) dispersible tablet 60 mg 60 mg, oral, Daily, First dose on Mon08/11/25 at 0900, Disperse total dose in ~120 mL of water, orange juice, or other acidic fruit beverage prior to administration; if insoluble excipients remain and do not entirely dissolve, add a small amount of liquid to cup and administer remaining mixture. Do not chew or swallow tablet before dispersing in liquid. 0904 (Given - Provider: Kathryn Dewey RN) 0907 (Given - Provider: Kathryn Dewey RN) mirtazapine (REMERON) tablet 15 mg 15 mg, oral, Nightly, First dose on Mon08/11/25 at 2100 2159 (Given - Provider: Minda Thomas RN) 2100 (Due) PRN Medication Order 08/10/2025 08/11/2025 08/12/2025 dextrose (D50W) 50% injection 12.5 g 12.5 g, intravenous, Every 15 min PRN, low blood sugar, moderate hypoglycemia *Patient is Unconscious, NPO, unable to swallow: BG 54 - 69 mg/dl*, Starting on Mon08/11/25 at 0700 dextrose (D50W) 50% injection 25 g 25 g, intravenous, Every 15 min PRN, low blood sugar, severe hypoglycemia *Patient is Unconscious, NPO, unable to swallow: BG LESS than 54 mg/dL*, Starting on Mon08/11/25 at 0700 dextrose 15 gram/60 mL oral solution 15 g 15 g, oral, Every 15 min PRN, low blood sugar, hypoglycemia *Patient conscious AND able to drink and swallow safely*, Starting on Mon08/11/25 at 0700 dextrose 15 gram/60 mL oral solution 30 g 30 g, oral, Every 15 min PRN, low blood sugar, hypoglycemia *Patient conscious AND able to drink and swallow safely*, Starting on Mon08/11/25 at 0700 glucagon HCL injection 1 mg 1 mg, intramuscular, Once as needed, low blood sugar, severe hypoglycemia, Starting on Mon08/11/25 at 0700, For 1 dose hydrOXYzine HCL (ATARAX) tablet 25 mg 25 mg, oral, 2 times daily PRN, anxiety, Starting on Mon08/11/25 at 0659 documented in this encounter Orders Medications Ordered That Wilder ht Not Have Been Administered Count Last Ordered Date First Ordered Date dextrose (D50W) 50% injection 12.5 g 1 09/2024 dextrose (D50W) 50% injection 25 g 1 2024 dextrose 15 gram/60 mL oral solution 15 g 1 08/11/2025 dextrose 15 gram/60 mL oral solution 30 g 1 08/11/2025 glucagon HCL injection 1 mg 1 08/11/2025 hydrOXYzine HCL (ATARAX) tablet 25 mg 1 09/2024 insulin glargine (LANTUS) in jection 10 Units 1 08/11/2025 insulin lispro injection 1-6 Units 1 2024 Diet Count Last Ordered Date First Orde red Date ADULT DIET 1 08/11/2025 Nursing Count Last Ordered Date First Orde red Date NOTIFY PROVIDER - INDICATE REASON 3 025 [id number] 1 08/11/2025 VITAL SIGNS 2 08/11/2025 08/10/2025 CONTINUOUS PULSE OXIMETRY 1 08/10/2025 NURSING GENERAL ASSESSMENTS AND INTERVENTIONS 1 08/10/2025 Consult Count Last Ordered Date First Orde red Date IP CONSULT TO SHANK BREAKER 1 08/10/2025 Precaution Count Last Ordered Date First Orde red Date SUICIDE PRECAUTIONS 2 08/10/2025 Privilege Level Count Last Ordered Date First O rdered Date 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
--- OUTSIDE RECORDS SUMMARY | 2025-08-12 15:05 | XMS_ITS | Clinical Summary ---
Author Organization [facility] Address [address] [place] [address] Phone Care Team Providers Care Lead Installer Name Role Phone Physician, No Pcp Primary Care Provider Unavaila ble Allergies No known active allergies Medications atorvastatin (LIPITOR) 20 mg tablet Take 1 tablet (20 mg total) by mouth at bedtime. 06/16/2025 Active escitalopram (LEXAPRO) 20 mg tablet Take 1 tablet (20 mg total) by mouth 1 (one) time each day. 06/29/2025 Active hydrOXYzine HCL (ATARAX) 25 mg tablet Take 1 tablet (25 mg total) by mouth 2 (two) times a day if needed for anxiety. 04/12/2025 Active Lantus Solostar U-100 Insulin 100 unit/mL (3 mL) injection pen Inject 10 Units under the skin at bedtime. 08/06/2025 Active metFORMIN (GLUCOPHAGE) 1,000 mg tablet Take 1 tablet (1,000 mg total) by mouth 2 (two) times a day. 06/13/2025 Active mirtazapine (REMERON) 15 mg tablet Take 1 tablet (15 mg total) by mouth at bedtime. 06/13/2025 Active Encounters Date Type Department Care Team Description 08/10/2025 1:29 PM EST - 08/12/2025 12:40 PM EST Emergency [facility] Emergency [address] [place] [address] Dalia Starr MD Kokkinos, Erika, MD Reid, MD Kelsie Alvarez, MD Preeti Hodge, Rochelle Nixon MD Suicidal ideation (Primary Dx) Discharge Disposition: [facility] from Last 3 Months Medical History Medical History Date Comments Substance abuse ([facility] V24, [facility] V28) Hepatitis C Diabetes ([facility] V24, [facility] V28) Social History Tobacco Use Types Packs/Day Years Used Date Smoking Tobacco: Former Cigarettes Tobacco Cessation:Counseling Given: Not Answered Sex and Gender Information Value Date Recorded Sex Assigned at Not on file Legal Sex Male 5:09 PM EST Gender Identity Not on file Sexual Orientation Not on file Obstetrics History Last Filed Vital Signs Vital Sign Reading [...] Mass Index 28.7 08/10/2025 1:19 PM EST Plan of Treatment Health Maintenance Due Date Last Done Comments DTaP,Tdap,and Td Vaccines (1 - Tdap) 2002 Hepatitis A Vaccines (1 of 2 - Risk 2-dose series) 2002 Hepatitis B Vaccines (1 of 3 - 19+ 3-dose series) 2002 HPV Vaccines (1 - 3-dose SCD M series) 2010 Depression Screening 2024 COVID-19 Vaccine (1 - 2024-2 6 season) 2025 Influenza Vaccine (#1) 2025 Cholesterol Screening (Lipid Panel) 08/10/2025 HIV Screening 08/10/2025 Hepatitis C Screening 08/10/2025 Social Influencers of Health Screening 08/10/2025 Hypertension/CHF/CAD Annual BMP Blood Test 08/10/2026 08/10/2025 RSV Immunization Adult Patie nts (1 - 1-dose 75+ series) 2058 HIB Vaccines Aged Out No longer eligi ble based on patient's age to complete this topic IPV Vaccines Aged Out No longer eligi ble based on patient's age to complete this topic MMR Vaccines Aged Out No longer eligi ble based on patient's age to complete this topic Meningococcal ACWY Vaccine Aged Out N o longer eligible based on patient's age to complete this topic Meningococcal B Vaccine Aged Out No l onger eligible based on patient's age to complete this topic Pneumococcal Vaccine: Pediat rics (0 to 5 Years) and At-Risk Patients (6 to 49 Years) Aged Out No longer eligi ble based on patient's age to complete this topic RSV Immunization Patients Un megan 20 months Aged Out No longer eligible b ased on patient's age to complete this topic Varicella Vaccines Aged Out No longer eligible based on patient's age to complete this topic Procedures Procedure Name Priority Date/Time Associated Diagnosis Comments POCT GLUCOSE BLOOD Routine 08/12/2025 8: 27 AM EST ECG ANNOTATED 08/12/2025 POCT GLUCOSE BLOOD Routine 08/11/2025 10 :02 PM EST POCT GLUCOSE BLOOD Routine 08/11/2025 5: 16 PM EST POCT GLUCOSE BLOOD Routine 08/11/2025 12 :24 PM EST POCT GLUCOSE BLOOD Routine 08/11/2025 8: 01 AM EST ECG 12-LEAD Routine 08/10/2025 5:59 PM EST SORIANO URINE CULTURE TUBE STAT 08/10/2025 4:25 PM EST URINALYSIS WITH REFLEX MICROSCOPIC AND CULTURE STAT 08/10/2025 4:25 PM EST URINALYSIS WITH REFLEX MICROSCOPIC AND CULTURE STAT 08/10/2025 4:25 PM EST DRUG ABUSE SCREEN 8A PANEL, URINE STAT 08/10/2025 4:25 PM EST BUPRENORPHINE SCREEN, URINE STAT 08/10/2025 4:25 PM EST PHENCYCLIDINE, URINE STAT 08/10/2025 4:25 PM EST METHADONE SCREEN, URINE STAT 08/10/2025 4:25 PM EST ECG 12-LEAD Routine 08/10/2025 4:17 PM EST MAGNESIUM STAT Add-on 08/10/2025 2:29 PM EST CBC WITH AUTO DIFFERENTIAL STAT 08/10/2025 2:29 PM EST SALICYLATE LEVEL Timed 08/10/2025 2:29 PM EST ACETAMINOPHEN LEVEL Timed 08/10/2025 2 :29 PM EST ETHANOL STAT 08/10/2025 2:29 PM EST COMPREHENSIVE METABOLIC PANEL STAT 08/10/2025 2:29 PM EST CBC AND DIFFERENTIAL STAT 08/10/2025 2:29 PM EST THYROID STIMULATING HORMONE WITH REFLEX TO FREE T4 AND FREE T3 STAT 08/10/2025 2:29 PM EST ECG 12-LEAD Routine 08/10/2025 2:11 PM EST from Last 3 Months Results * POCT Glucose, blood (08/12/2025 8:27 AM EST) Only the most recent of5 resultswithin the time period is included. Glucose POCT 77 70 - 100 mg/dL 08/12/2025 8:27 AM EST [facility] Blood Capillary blood specimen / Unknown 08/12/2025 8:27 AM EST 08/12/2025 8:28 AM EST us Rochelle Álvarez MD LAB POINT OF CARE T EST DOCKED DEVICE UNSOLICITED RESULTS Final Result [facility] [address] [place] [address], [place] [phone] * ECG-Annotated (08/12/2025) Provider Onbase ECG ORDERABLES Final Result * ECG 12 lead (08/10/2025 5:59 PM EST) Only the most recent of3 resultswithin the time period is included. Pathologist [facility] Ventricular Rate ECG 56 BPM GEMUSE Atrial Rate 56 BPM GEMUSE P-R Interval 188 ms GEMUSE QRS Duration 92 ms GEMUSE Q-T Interval 472 ms GEMUSE QTc 455 ms GEMUSE P Wave Rhododendron 51 degrees GEMUSE R Rhododendron 43 degrees GEMUSE T Rhododendron 38 degrees GEMUSE ECG Interpretation Sinus bradycardia Otherwise normal ECG When compared with ECG of 10-AUG-2025 16:17, (unconfirmed) No significant change was found Confirmed by MARCIA ESPAÑA ([id number]) on 08/12/2025 9:32:57 AM GEMUSE 08/10/2025 5:59 PM EST 08/12/2025 9:32 AM EST Janice ROMAN ECG ORDERABLES Final Result GEMUSE * Urinalysis with reflex microscopic and culture (08/10/2025 4:25 PM EST) [facility] Specific [place] Urine 1.011 1.003 - 1.030 LAB URINALYSIS - AUTOMATED METHOD 08/10/2025 5:01 PM [facility] pH, Urine 7.5 5.0 - 8.0 pH LAB URINALYSIS - AUTOMATED METHOD 08/10/2025 5:01 PM [facility] Leukocytes, Urine Negative Negative LAB URINALYSIS - AUTOMATED METHOD 08/10/2025 5:01 PM [facility] Nitrite, Urine Negative Negative LAB URINALYSIS - AUTOMATED METHOD 08/10/2025 5:01 PM [facility] Protein, Urine Trace <=Trace mg/dL LAB URINALYSIS - AUTOMATED METHOD 08/10/2025 5:01 PM [facility] Glucose, Urine Negative Negative mg/dL LAB URINALYSIS - AUTOMATED METHOD 08/10/2025 5:01 PM [facility] Ketones, Urine Negative Negative mg/dL LAB URINALYSIS - AUTOMATED METHOD 08/10/2025 5:01 PM [facility] Urobilinogen, Urine 0.2 0.2 - 1.0 mg/dL LAB URINALYSIS - AUTOMATED METHOD 08/10/2025 5:01 PM [facility] Bilirubin, Urine Negative Negative LAB URINALYSIS - AUTOMATED METHOD 08/10/2025 5:01 PM [facility] Blood, Urine Negative Negative LAB URINALYSIS - AUTOMATED METHOD 08/10/2025 5:01 PM [facility] Urine Urine specimen obtained by clean catch procedure / Unknown Non-blood Collection / Unknown 08/10/2025 4:25 PM EST 08/10/2025 4:55 PM EST Janice ROMAN LAB URINE ORDERABLES Final R esult Performing Organization Address City/[facility] Co de Phone Number [facility] [address] [place] [address], [place] [phone] * Soriano urine culture tube (08/10/2025 4:25 PM EST) Extra Tube Hold for add-ons. 08/10/2025 6:02 PM [facility] Comment:Auto resulted. Urine Urine specimen obtained by clean catch procedure / Unknown Non-blood Collection / Unknown 08/10/2025 4:25 PM EST 08/10/2025 4:55 PM EST Janice ROMAN LAB URINE ORDERABLES Final R esult [facility] [address] [place] [address], [place] [phone] * (ABNORMAL) Drug abuse screen 8a panel, urine (08/10/2025 4:25 PM EST) [facility] Signature Amphetamine Screen, Ur Negative Negative 08/10/2025 5:19 PM EST [facility] Comment:Certain OTC medicati ons containing ephedrine, phenylephrine, pseudoephedrine and phenylpropanolamine can cause false positive results. Barbiturate Screen, Ur Negative Negative 08/10/2025 5:19 PM EST [facility] Benzodiazepine Screen, Ur Positive(A ) Negative 08/10/2025 5:19 PM [facility] Cocaine Screen, Ur Negative Negative 2024 5:19 PM [facility] Opiate Screen, Ur Negative Negative 5:19 PM [facility] Cannabinoid (THC) Screen, Ur Positive(A ) Negative 08/10/2025 5:19 PM EST [facility] Comment:Specimens from patie nts taking pantoprazole sodium (Protonix) have been shown to produce false positive results. Oxycodone Screen, Ur Negative Negative 07/14 5:19 PM EST [facility] Fentanyl, Ur Negative Negative 08/10/2025 5:19 PM [facility] Urine Urine specimen obtained by clean catch procedure / Unknown Non-blood Collection / Unknown 08/10/2025 4:25 PM EST 08/10/2025 4:55 PM EST [facility] - 08/10/2025 5:19 PM EST Assay cutoffs: Amphetamines 1000 ng/mL Barbiturates 200 ng/mL Benzodiazepines 200 ng/mL Cocaine 300 ng/mL Fentanyl 1 ng/mL Opiates 300 ng/mL Oxycodone 100 ng/mL THC 50 ng/mL Semi-quantitative assay for screening purposes only. Unconfirmed screening result should not be used for non-medical purposes. *ALTERNATE METHOD CONFIRMATION DONE UPON REQUEST ONLY* Janice Bueno CA LAB URINE ORDERABLES Final R esult Performing Organization Address [facility] Co de Phone Number [facility] [address] [place] [address], [place] [phone] * Buprenorphine screen, urine (08/10/2025 4:25 PM EST) [facility] Buprenorphine Screen Urine Negative Negative 08/10/2025 5:18 PM EST [facility] Urine Urine specimen obtained by clean catch procedure / Unknown Non-blood Collection / Unknown 08/10/2025 4:25 PM EST 08/10/2025 4:55 PM EST Narrative [facility] - 08/10/2025 5:18 PM EST Assay cutoff 5 ng/mL Semi-quantitative assay for screening purposes only. Unconfirmed screening result should not be used for non-medical purposes. *ALTERNATE METHOD CONFIRMATION DONE UPON REQUEST ONLY* Janice Bueno CA LAB URINE ORDERABLES Final R esult Performing Organization Address City/[facility] Co de Phone Number [facility] [address] [place] [address], [place] [phone] * (ABNORMAL) Methadone, urine (08/10/2025 4:25 PM EST) [facility] Methadone Screen, Urine Positive( A) Negative 08/10/2025 5:18 PM EST [facility] Comment: Assay cutoff 300 ng/mL Semi-quantitative assay for screening purposes only. Unconfirmed screening result should not be used for non-medical purposes. *ALTERNATE METHOD CONFIRMATION DONE UPON REQUEST ONLY* Urine Urine specimen obtained by clean catch procedure / Unknown Non-blood Collection / Unknown 08/10/2025 4:25 PM EST 08/10/2025 4:55 PM EST [facility] URINE ORDERABLES Final R esult Performing Organization Address City/[facility]/ZIP Co de Phone Number [facility] [address] [place] [address], [place] [phone] * Phencyclidine, urine (08/10/2025 4:25 PM EST) PCP Scrn, Ur Negative Negative 08/10/2025 5:19 PM EST [facility] Comment: Assay cutoff 25 ng/mL Semi-quantitative assay for screening purposes only. Unconfirmed screening result should not be used for non-medical purposes. *ALTERNATE METHOD CONFIRMATION DONE UPON REQUEST ONLY* Urine Urine specimen obtained by clean catch procedure / Unknown Non-blood Collection / Unknown 08/10/2025 4:25 PM EST 08/10/2025 4:55 PM EST [facility] LAB URINE ORDERABLES Final R esult Performing Organization Address City/[facility]/ZIP Co de Phone Number [facility] [address] [place] [address], [place] [phone] * Thyroid stimulating hormone with reflex to free t4 and free t3 (08/10/2025 2:29 PM EST) TSH 0.82 0.40 - 4.00 mcIU/mL 08/10/2025 3:58 PM EST [facility] Blood Venous blood specimen / Unknown Venipuncture / Unknown 08/10/2025 2:29 PM EST 08/10/2025 3:09 PM EST [facility] Myles CA LAB BLOOD ORDERABLES Final R esult [facility] [address] [place] [address], [place] [phone] * (ABNORMAL) CBC auto differential (08/10/2025 2:29 PM EST) [facility] WBC 8.4 4.8 - 10.8 K/mcL LAB HEMETOLOGY METHOD 08/10/2025 3:30 PM [facility] RBC 4.50 4.50 - 5.50 M/mcL LAB HEMETOLOGY METHOD 08/10/2025 3:30 PM [facility] Hemoglobin 12.7(L) 13.5 - 17.5 g/dL LAB HEMETOLOGY METHOD 08/10/2025 3:30 PM [facility] Hematocrit 37.5(L) 42.0 - 54.0 % LAB HEMETOLOGY METHOD 08/10/2025 3:30 PM [facility] MCV 82.6 79.0 - 98.0 FL LAB HEMETOLOGY METHOD 08/10/2025 3:30 PM [facility] MCH 28.0 27.0 - 32.0 pcg LAB HEMETOLOGY METHOD 08/10/2025 3:30 PM [facility] MCHC 33.9 32.0 - 37.0 g/dL LAB HEMETOLOGY METHOD 08/10/2025 3:30 PM [facility] RDW 12.6 11.0 - 15.0 % LAB HEMETOLOGY METHOD 08/10/2025 3:30 PM [facility] Platelets 295 130 - 400 K/mcL LAB HEMETOLOGY METHOD 08/10/2025 3:30 PM [facility] MPV 11.0 7.0 - 11.0 FL LAB HEMETOLOGY METHOD 08/10/2025 3:30 PM [facility] NRBC 0.0 <1.0 % LAB HEMETOLOGY METHOD 08/10/2025 3:30 PM [facility] NRBC Absolute 0.00 <0.10 K/mcL LAB HEMETOLOGY METHOD 08/10/2025 3:30 PM [facility] Neutrophils Relative 77.4 % LAB HEMETOLOGY METHOD 08/10/2025 3:30 PM [facility] Lymphocytes Relative 16.0 % LAB HEMETOLOGY METHOD 08/10/2025 3:30 PM [facility] Monocytes Relative 5.0 % LAB HEMETOLOGY METHOD 08/10/2025 3:30 PM [facility] Eosinophils Relative 0.7 % LAB HEMETOLOGY METHOD 08/10/2025 3:30 PM [facility] Basophils Relative 0.5 % LAB HEMETOLOGY METHOD 08/10/2025 3:30 PM [facility] Immature Granulocytes Relative 0.4 % LAB HEMETOLOGY METHOD 08/10/2025 3:30 PM [facility] Neutrophils Absolute 6.46 1.50 - 7.00 K/mcL LAB HEMETOLOGY METHOD 08/10/2025 3:30 PM [facility] Lymphocytes Absolute 1.34 1.00 - 5.00 K/mcL LAB HEMETOLOGY METHOD 08/10/2025 3:30 PM [facility] Monocytes Absolute 0.42 0.20 - 1.00 K/mcL LAB HEMETOLOGY METHOD 08/10/2025 3:30 PM [facility] Eosinophils Absolute 0.06 0.00 - 0.50 K/mcL LAB HEMETOLOGY METHOD 08/10/2025 3:30 PM [facility] Basophils Absolute 0.04 0.00 - 0.20 K/mcL LAB HEMETOLOGY METHOD 08/10/2025 3:30 PM [facility] Immature Granulocytes Absolute 0.03 0.00 - 0.03 K/mcL LAB HEMETOLOGY METHOD 08/10/2025 3:30 PM [facility] Blood Venous blood specimen / Unknown Venipuncture / Unknown 08/10/2025 2:29 PM EST 08/10/2025 3:09 PM EST Janice ROMAN LAB BLOOD ORDERABLES Final R esult Performing Organization Address City/[facility]/ZIP Co de Phone Number [facility] [address] [place] [address], [place] [phone] * (ABNORMAL) Magnesium (08/10/2025 2:29 PM EST) Magnesium 1.6(L) 1.9 - 2.6 mg/dL 08/10/2025 3:57 PM EST [facility] Blood Venous blood specimen / Unknown Venipuncture / Unknown 08/10/2025 2:29 PM EST 08/10/2025 3:09 PM EST Janice ROMAN LAB BLOOD ORDERABLES Final R esult Performing Organization Address [facility]/ZIP Co de Phone Number [facility] [address] [place] [address], [place] [phone] * Ethanol (08/10/2025 2:29 PM EST) Ethanol Level <3 0 - 10 mg/dL 08/10/2025 3:58 PM EST [facility] Blood Venous blood specimen / Unknown Venipuncture / Unknown 08/10/2025 2:29 PM EST 08/10/2025 3:09 PM EST Janice ROMAN LAB BLOOD ORDERABLES Final R esult [facility] [address] [place] [address], [place] [phone] * (ABNORMAL) Acetaminophen level (08/10/2025 2:29 PM EST) Acetaminophen Level <2.0(L) 10.0 - 30.0 mcg/mL 08/10/2025 3:57 PM EST [facility] Blood Venous blood specimen / Unknown Venipuncture / Unknown 08/10/2025 2:29 PM EST 08/10/2025 3:09 PM EST Janice ROMAN LAB BLOOD ORDERABLES Final R esult [facility] [address] [place] [address], [place] [phone] * Salicylate level (08/10/2025 2:29 PM EST) Salicylate Level <3.0 2.0 - 29.0 mg/dL 08/10/2025 3:58 PM EST [facility] Blood Venous blood specimen / Unknown Venipuncture / Unknown 08/10/2025 2:29 PM EST 08/10/2025 3:09 PM EST Janice ROMAN LAB BLOOD ORDERABLES Final R esult Performing Organization Address City/[facility]/ZIP Co de Phone Number [facility] [address] [place] [address], [place] [phone] * (ABNORMAL) Comprehensive metabolic panel (08/10/2025 2:29 PM EST) Sodium 139 133 - 145 mmol/L 08/10/2025 3:57 PM EST [facility] Potassium 3.9 3.5 - 5.5 mmol/L 08/10/2025 3:57 PM EST [facility] Chloride 102 96 - 110 mmol/L 08/10/2025 3:57 PM EST [facility] CO2 27 21 - 32 mmol/L 08/10/2025 3:57 PM EST [facility] Anion Gap 10 3 - 11 08/10/2025 3:57 PM [facility] Glucose 103(H) 70 - 100 mg/dL 08/10/2025 3:57 PM [facility] BUN 11 5 - 25 mg/dL 08/10/2025 3:57 PM [facility] Creatinine 0.89 0.70 - 1.30 mg/dL 08/10/2025 3:57 PM [facility] eGFR 110 >=60 mL/min/1. 73m2 08/10/2025 3:57 PM [facility] Comment:Calculation based on the Chronic Kidney Disease Epidemiology Collaboration (CKD-EPI) equation refit without adjustment for race. BUN/Creatinine Ratio 12.4 08/10/2025 3:57 PM [facility] Calcium 8.1(L) 8.5 - 10.5 mg/dL 08/10/2025 3:57 PM [facility] AST (SGOT) 61(H) 10 - 42 unit/L 08/10/2025 3:57 PM [facility] ALT (SGPT) 102(H) 10 - 60 unit/L 08/10/2025 3:57 PM [facility] Alkaline Phosphatase 58 42 - 121 unit/L 08/10/2025 3:57 PM [facility] Total Protein 6.7 6.0 - 8.0 g/dL 08/10/2025 3:57 PM [facility] Albumin 4.3 3.2 - 5.0 g/dL 08/10/2025 3:57 PM [facility] Total Bilirubin 0.2 0.0 - 1.4 mg/dL 08/10/2025 3:57 PM [facility] Blood Venous blood specimen / Unknown Venipuncture / Unknown 08/10/2025 2:29 PM EST 08/10/2025 3:09 PM EST us Janice ROMAN LAB BLOOD ORDERABLES Final R esult FRANCIS DAVILA [place] ([facility] [address] [place] [address], [place] [phone] from Last 3 Months Insurance [employer] Care Teams Lead Installer Relationship Specialty Start Date End Date Physician, No Pcp PCP - General 08/10/25
[2025-08-12 15:08] VITALS: BP 133/73; PULSE 58; RESP 16; TEMP 36.7; O2SAT 99
--- NOTE | 2025-08-12 15:08 | HE.PHANOTE ---
RE: METHADONE DOSING Last dose of methadone 60 mg was given on 08/12/25 @[address] [facility] per ALICIA Peralta. Patient [facility] to [facility] [phone], last dose 60 mg given on 08/08/25 per Kadie Gibbs RN.
--- NOTE | 2025-08-12 15:11 | HO.PSYADMNOT ---
HPI Date of Service: 08/12/25 Chief Complaint: Unspecified Depressive Disorder Unspecified Anxiet Sources of Information: patient interviewed, chart reviewed and crisis/core team assessment reviewed HPI Subjective Notes: Jasmine Warning and Conditional Voluntary Narrative: Patient is a 39 year old male with hx of MDD, opioid use d/o, cocaine use d/o and benzodiazapine d/o who presented to ER d/t suicidal ideation with a plan to overdose on benzodiazepines secondary to increased life stressors. Per crisis report, patient presented to ER due to suicidal ideation with a plan to overdose on benzodiazepines. Patient reports he has acted on suicidal ideation before. Previously hospitalized in [facility]. Patient reports he took [address] and each of 5mg tablets for a total of 25 mg. Denies IV drug use. Reports frequent Xanax use that he purchases from the street. Denies HI/VH/AH. Patient was taken to [facility] by his ex partner after being found by her wandering on the streets. Patient reported they had an argument about a week ago which is when he was unable to stay with her and has been staying with a friend in the [facility]. Patient reports he has been having increased depression and life stressors such as relapsed, and secure housing and relationship issues. Patient reports he has not taken medications in about he denied current SI and stated that he will not harm himself however he feels he would benefit from getting his meds re-evaluated and working on his mental health. Patient's ex partner reported patient was in a sober home until he was kicked out 3 days ago for relapsing. patient had broken up with ex-partner a year ago after he cheated on her but they still communicate daily. During admission assessment, pt presents alert and oriented x3. Calm and cooperative. Patient reports feeling depressed; pt stated, I was feeling suicidal because things are not working out between me and my and my living situation. I let her down and myself down. I relapsed with a person from work and it went south from there . Patient reports he has been using 2 bundles of heroin IV daily, cocaine twice a week and taking 2 Xanax daily for the past couple weeks . He currently denies any withdrawal symptoms; pt stated, I've been at [facility] for 3 days so I'm not withdrawing anymore ; pt placed on [facility] protocol for possible benzodiazepine withdrawal. Addiction medicine consult placed for pipe recovery specialist. Patient reports he has not taken his psychiatric medications for the past week d/t relapse and not having outpatient providers. He denies hx of SA/SIB. denies SI/HI/VH/AH. Patient reports he is interested in going to a substance abuse program for treatment. Past Psychiatric History: hx of multiple inpatient psychiatric hospitalizations. does not have outpatient psychiatric providers. denies hx of SA/SIB. Medical Evaluation Reviewed: Yes PMFSH Family History: Mother: anxiety/depression Social History: Homeless. but . 2 step children. unemployed. GED. Substance History: Marijuana, cocaine, opioid and benzodiazepine abuse. Trauma History: denies Meds/Allergies Meds Home Medications ?Medication ?Instructions ?Recorded ?Confirmed ?Type atorvastatin 20 mg tablet 20 mg PO BEDTIME 08/12/25 08/12/25 History escitalopram oxalate 20 mg tablet 20 mg PO DAILY 08/12/25 08/12/25 History insulin glargine 100 unit/mL (3 10 unit subcut BEDTIME 08/12/25 08/12/25 History mL) subcutaneous pen (Lantus Solostar U-100 Insulin) melatonin 3 mg tablet 3 mg PO BEDTIME PRN insomnia 08/12/25 08/12/25 History metformin 1,000 mg tablet 1,000 mg PO BID 08/12/25 08/12/25 History methadone 10 mg/mL oral 60 mg PO DAILY 08/12/25 08/12/25 History concentrate (Methadone Intensol) mirtazapine 15 mg tablet 15 mg PO BEDTIME 08/12/25 08/12/25 History Allergies Allergies Allergy/AdvReac Type Severity Reaction Status Date / Time No Known Allergies Allergy Verified 08/12/25 13:34 Mental Status Exam Mental Status Exam Patient Appearance: Appropriate Patient Orientation: Person, Place, Time and Situation Level of Consciousness: Awake and Alert Patient Behavior: Appropriate, Cooperative and Good Eye Contact Mood Description: Calm and Depressed Affect Description: Depressed Ability to Follow Directions: Good Speech Pattern: Clear Memory Description: Intact Hallucinations: None Delusions: Not Present Thought Process: Intact and Goal Oriented Thought Content: positive for Intact Assessment & Plan Assessment & Plan (1) MDD (major depressive disorder), recurrent episode: Status: Acute Code(s): F33.9 - Major depressive disorder, recurrent, unspecified (2) Opioid use disorder: Status: Acute Code(s): F11.90 - Opioid use, unspecified, uncomplicated (3) Cocaine use disorder: Status: Acute Code(s): F14.90 - Cocaine use, unspecified, uncomplicated (4) Benzodiazepine abuse: Status: Acute Code(s): F13.10 - Sedative, hypnotic or anxiolytic abuse, uncomplicated (5) Homelessness: Status: Acute Code(s): Z59.00 - Homelessness unspecified Plan Patient is a 39 year old male with hx of MDD, opioid use d/o, cocaine use d/o and benzodiazapine d/o who presented to ER d/t suicidal ideation with a plan to overdose on benzodiazepines secondary to increased life stressors. Plan: CV 15 minute safety checks Continue home medications Obtain collateral Encourage groups [place] protocol Addiction medicine consult Referral to outpatient psychiatric providers Referral to substance abuse program Discharge planning Patient educated on: diagnosis and medication risk/benefits Reason for continued inpatient stay Substantial Risk for: med/psych decompensation Statement Statement: I have reviewed the history and physical and performed a pertinent examination on my patient. No changes have occurred unless specified. If the History and Physical was not performed prior to admission, the Hospitalist's service will be consulted for completing the admission physical. Time Spent With Patient Time: Total time managing care of this patient today _60___ minutes.
[2025-08-12 15:15] VITALS: BMI 36.8
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
[2025-08-12 20:00] VITALS: BP 136/64; PULSE 64; RESP 16; TEMP 37.2; O2SAT 99
[2025-08-13 08:00] VITALS: BP 130/62; PULSE 53; RESP 16; TEMP 37.7; O2SAT 97
[2025-08-13] MEDS: methADONE HCl 20 MG/2 ML ORAL.CONC 60 MG PO (08:04)
[2025-08-13 08:26] LABS: Alanine Aminotransferase 96 U/L (0-40); Albumin Level 4.6 g/dL (3.5-5.0); Alkaline Phosphatase 64 U/L (39-117); Anion Gap 11 (12-20); Aspartate Amino Transferase 67 U/L (5-37); Blood Urea Nitrogen 9 mg/dL (9-16); Calcium 9.5 mg/dL (8.4-10.2); Carbon Dioxide 26 mmol/L (22-29); Chloride 107 mmol/L (96-108); Cholesterol 150 mg/dL (<200); Creatinine Clr Calc Pharmacy 136.1; Estimated Glomerular Filt Rate > 60; HDL Cholesterol 39 mg/dL (>40); Potassium 4.3 mmol/L (3.3-5.1); Sodium 140 mmol/L (135-145); Total Protein 7.7 g/dL (6.5-8.0); Triglycerides 98 mg/dL (<150)
--- NOTE | 2025-08-13 08:40 | P.CONHOSP_ITS ---
History of Present Illness Data of Consult Service Date: 08/13/25 Primary Care Provider: Unknown Physician HPI Reason for consult: Medical H&P 39-year-old male with a past medical history of major depressive disorder, anxiety, substance use disorder on methadone, + Hep C treated with interferon in the past, now reinfected, type 2 diabetes, hyperlipidemia, benzodiazepine abuse, cocaine use disorder, presented to the emergency room with intentional overdose of Xanax which he purchased on the streets. In the ED poison control was consulted, and patient was monitor for respiratory depression, none occurred. He had serial EKGs with no QTC prolongation. No evidence of cardiac event. U tox was positive for benzos and marijuana. ETOH level negative, urinalysis negative for infection. Metabolic panel revealed mild transaminitis. Thyroid panel negative. CBC without leukocytosis. Mild anemia. On exam he has no medical concerns. Reports that he was previously taking med this, however was taken off of this by his primary care doctor. PMFSH Social History Household Members: None Housing: Homeless Do you presently have visiting nurse or other home services: No Patient Tobacco Use Status: Current everyday Tobacco user Tobacco use type: Cigarette Smoked in Last 30 Days: Yes Patient Interested in Nicotine Replacement: Yes Patient Given Instructions on How to Stop Smoking: No Second Hand Smoke Exposure: No Currently Displaying Signs/Symptoms of Drug Intoxication Withdrawal: No Have you been hit, kicked, punched, or otherwise hurt by someone within the past year? If so, by whom?: No Do you feel safe in your current relationship?: Yes Is there a partner from a previous relationship who is making you feel unsafe now?: No Are you made to feel afraid or neglected: No Advance Directives: No Advance Directives Information Provided: No Do you have thoughts of harming others: None Do you have a plan to hurt others: No Plan Recently lost weight without trying: No Eating poorly because of decreased appetite: No Nutrition Risks: No Nutritional Risk Poor oral hygiene: No service: No Sexual orientation: Straight/Heterosexual Meds Allergies Allergy/AdvReac Type Severity Reaction Status Date / Time No Known Allergies Allergy Verified 08/12/25 13:34 Active Medications: Current Medications Acetaminophen (Acetaminophen 325 Mg Tablet) 650 mg PO Q6H PRN PRN Reason: Headache/Pain, Scale 1-10 Al Hydroxide/Mg Hydroxide (Magnesium Hydrox/Alum Hydrox 30 Ml Oral.Susp) 30 ml PO Q6H PRN PRN Reason: Heartburn/Nausea Atorvastatin Calcium (Atorvastatin Calcium 20 Mg Tablet) 20 mg PO BEDTIME [facility] Last Admin: 08/12/25 20:36 Dose: 20 mg Escitalopram Oxalate (Escitalopram Oxalate 20 Mg Tablet) 20 mg PO DAILY [facility] Last Admin: 08/13/25 08:25 Dose: 20 mg Hydroxyzine HCl (Hydroxyzine Hcl 25 Mg Tablet) 25 mg PO Q6H PRN PRN Reason: mild anxiety Lorazepam (Lorazepam 1 Mg Tablet) 1 mg PO Q2H PRN PRN Reason: CIWA 8-11 Lorazepam (Lorazepam 1 Mg Tablet) 2 mg PO Q2H PRN PRN Reason: CIWA 12-15 Lorazepam (Lorazepam 1 Mg Tablet) 3 mg PO Q2H PRN PRN Reason: CIWA > 15, and call Magnesium Hydroxide (Milk Of Magnesia 30 Ml Oral.Susp) 30 ml PO DAILY PRN PRN Reason: Constipation Melatonin (Melatonin 3 Mg Tablet) 3 mg PO BEDTIME PRN PRN Reason: Insomnia Metformin HCl (Metformin Hcl 1,000 Mg Tablet) 1,000 mg PO BIDWM [facility] Last Admin: 08/13/25 08:25 Dose: 1,000 mg Methadone HCl (Methadone Hcl 20 Mg/2 Ml Oral.Conc) 60 mg PO DAILY@0800 [facility] Last Admin: 08/13/25 08:04 Dose: 60 mg Mirtazapine (Mirtazapine 15 Mg Tablet) 15 mg PO BEDTIME [facility] Last Admin: 08/12/25 20:36 Dose: 15 mg Nicotine (Nicotine 21 Mg Patch.Td24) 21 mg TRANSDERMA DAILY [facility] Nicotine Polacrilex (Nicotine Polacrilex 2 Mg Gum) 4 mg BUCCAL Q2H PRN PRN Reason: Nicotine Cravings Last Admin: 08/13/25 08:28 Dose: 4 mg Nicotine Polacrilex (Nicotine Polacrilex Lozenge 2 Mg Lozenge) 2 mg BUCCAL Q2H PRN PRN Reason: Nicotine Cravings Thiamine HCl (Thiamine Hcl 100 Mg Tablet) 100 mg PO DAILY [facility] Last Admin: 08/13/25 08:25 Dose: 100 mg Trazodone HCl (Trazodone Hcl 50 Mg Tablet) 50 mg PO BEDTIME MRX1 PRN PRN Reason: Insomnia Home Medications ?Medication ?Instructions ?Recorded ?Confirmed ?Last Taken ?Type atorvastatin 20 mg tablet 20 mg PO BEDTIME 08/12/2508/11/25 History escitalopram oxalate 20 mg tablet 20 mg PO DAILY 08/1208/12/25 08/12/25 09:00 History insulin glargine 100 unit/mL (3 10 unit subcut BEDTIME 08/12/25 08/12/25 08/04/25 History mL) subcutaneous pen (Lantus Solostar U-100 Insulin) melatonin 3 mg tablet 3 mg PO BEDTIME PRN insomnia 08/12/25 08/12/25 Unknown History metformin 1,000 mg tablet 1,000 mg PO BID 08/12/2511/0508/12/25 09:00 History methadone 10 mg/mL oral 60 mg PO DAILY 08/12/2511/0508/12/25 09:00 History concentrate (Methadone Intensol) mirtazapine 15 mg tablet 15 mg PO BEDTIME 08/12/2508/11/25 21:00 History Physical Exam 2 Vital Signs and Narrative: Vital Signs: Last Vital Signs Temp 99 F 08/12/25 20:00 Pulse 64 08/12/25 20:00 Resp 16 08/12/25 20:00 BP 136/64 08/12/25 20:00 Pulse Ox 99 08/12/25 20:00 O2 Del Method Room Air 08/12/25 20:00 BMI result Body Mass Index 36.8 Alert and oriented X3, calm and cooperative. Answers questions. Neuro: CN II-X11 intact, no deficits, visual acuity intact EYES: PERRLA, EOM intact ENT: Hearing intact, MMM Cardiac: S1 S2 RRR, No ectopy Pulmonary: lungs clear to auscultation, No increased WOB. Abdominal: BS active in all 4 quadrants, no guarding or tenderness MSK: Strength 5/5 upper and lower extremities. Ambulating with a steady gait. : Deferred Extremities: No edema in lower extremities Psych: Mood stable, Quiet and cooperative. Skin: Warm and dry, Intact Results Labs 08/13/25 07:58 Labs: Laboratory Results - last 24 hr 08/13/25 08/13/25 08/13/25 07:58 07:58 07:58 Anion Gap 11 L Estim Creat Clear Calc 136.1 Cancelled Estimated GFR > 60 Cancelled Random Glucose 87 Estimat Average Glucose 128 Hemoglobin A1c % 6.1 H Calcium 9.5 Total Bilirubin 0.4 AST 67 H ALT 96 H Alkaline Phosphatase 64 Total Protein 7.7 Albumin 4.6 Triglycerides 98 Cholesterol 150 LDL Cholesterol, Calc 92 HDL Cholesterol 39 L Assessment and Plan (1) Type 2 diabetes mellitus: Status: Acute Plan 39-year-old male with past medical history as listed below presented to the emergency room with suicide ideation with a plan to overdose. Now admitted for inpatient stabilization. Major depressive disorder/anxiety/VIJAY on methadone/benzodiazepine abuse/cocaine use disorder. Treatment per psychiatric team Addiction medicine consult + Hep C treated with interferon in the past, now reinfected/transaminitis We will need follow up with GI as an outpatient On admit AST 61, ALT 102 Today AST 67/ALT 96 Type 2 diabetes A1c 6.9, continue with metformin Follow up with PCP outpatient Hyperlipidemia Hold Lipitor Follow liver functions. Patient to follow up with PCP to resume. Thank you for allowing me to participate in the care of this patient. Will follow with you, please notify medical provider with any changes in condition or concerns.
--- NOTE | 2025-08-13 10:20 | P.PNPSI_ITS ---
Subjective Subjective Date of Service: 08/13/25 Reason For Visit: Unspecified Depressive Disorder Unspecified Anxiet Subjective Notes: Conditional Voluntary Interim History: Active on unit. social with peers. attending groups. Patient reports having withdrawal symptoms today; pt stated, I woke up today, sweating and with joint pain . He reports some anxiety. Focused on going to a substance abuse program; social service worker aware. denies SI/HI/VH/AH. denies any side effects from medications. He reports poor sleep last night. Continue tx plan. Medication Compliance: Yes Side effects from medications: No Attending Groups: Yes Mental Status Exam Mental Status Exam Narrative: Pt is alert and oriented; behavior is cooperative and calm; dressed in casual attire; mood is described as anxious ; eye contact appropriate; Speech is normal rate, volume and not pressured; thought process is organized; Thought content is on tx; denies SI/HI/VH/AH. Diagnostics Vital Signs (24Hr): Vital Signs - 24 hr 08/12/25 15:08 08/12/25 20:00 Temperature 98.1 F 99 F Pulse Rate 58 64 Respiratory Rate 16 16 Blood Pressure 133/73 136/64 Pulse Oximetry 99 99 Oxygen Delivery Method Room Air Room Air BMI result Body Mass Index 36.8 Labs 08/13/25 07:58 Labs: Laboratory Results - last 48 hr 08/13/25 08/13/25 08/13/25 07:58 07:58 07:58 Sodium 140 Potassium 4.3 Chloride 107 Carbon Dioxide 26 Anion Gap 11 L BUN 9 Creatinine 0.94 Cancelled Estim Creat Clear Calc 136.1 Cancelled Estimated GFR > 60 Random Glucose Estimat Average Glucose Hemoglobin A1c % Calcium Total Bilirubin AST ALT Alkaline Phosphatase Total Protein Albumin Triglycerides Cholesterol LDL Cholesterol, Calc HDL Cholesterol 08/13/25 07:58 Sodium Potassium Chloride Carbon Dioxide Anion Gap BUN Creatinine Estim Creat Clear Calc Estimated GFR Cancelled Random Glucose 87 Estimat Average Glucose 128 Hemoglobin A1c % 6.1 H Calcium 9.5 Total Bilirubin 0.4 AST 67 H ALT 96 H Alkaline Phosphatase 64 Total Protein 7.7 Albumin 4.6 Triglycerides 98 Cholesterol 150 LDL Cholesterol, Calc 92 HDL Cholesterol 39 L Medications Medications Current Medications Acetaminophen (Acetaminophen 325 Mg Tablet) 650 mg PO Q6H PRN PRN Reason: Headache/Pain, Scale 1-10 Al Hydroxide/Mg Hydroxide (Magnesium Hydrox/Alum Hydrox 30 Ml Oral.Susp) 30 ml PO Q6H PRN PRN Reason: Heartburn/Nausea Atorvastatin Calcium (Atorvastatin Calcium 20 Mg Tablet) 20 mg PO BEDTIME [facility] Last Admin: 08/12/25 20:36 Dose: 20 mg Escitalopram Oxalate (Escitalopram Oxalate 20 Mg Tablet) 20 mg PO DAILY [facility] Last Admin: 08/13/25 08:25 Dose: 20 mg Hydroxyzine HCl (Hydroxyzine Hcl 25 Mg Tablet) 25 mg PO Q6H PRN PRN Reason: mild anxiety Lorazepam (Lorazepam 1 Mg Tablet) 1 mg PO Q2H PRN PRN Reason: CIWA 8-11 Lorazepam (Lorazepam 1 Mg Tablet) 2 mg PO Q2H PRN PRN Reason: CIWA 12-15 Lorazepam (Lorazepam 1 Mg Tablet) 3 mg PO Q2H PRN PRN Reason: CIWA > 15, and call MD Magnesium Hydroxide (Milk Of Magnesia 30 Ml Oral.Susp) 30 ml PO DAILY PRN PRN Reason: Constipation Melatonin (Melatonin 3 Mg Tablet) 3 mg PO BEDTIME PRN PRN Reason: Insomnia Metformin HCl (Metformin Hcl 1,000 Mg Tablet) 1,000 mg PO BIDWM [facility] Last Admin: 08/13/25 08:25 Dose: 1,000 mg Methadone HCl (Methadone Hcl 20 Mg/2 Ml Oral.Conc) 60 mg PO DAILY@0800 [facility] Last Admin: 08/13/25 08:04 Dose: 60 mg Mirtazapine (Mirtazapine 15 Mg Tablet) 15 mg PO BEDTIME [facility] Last Admin: 08/12/25 20:36 Dose: 15 mg Nicotine (Nicotine 21 Mg Patch.Td24) 21 mg TRANSDERMA DAILY [facility] Last Admin: 08/13/25 09:27 Dose: Not Given Nicotine Polacrilex (Nicotine Polacrilex 2 Mg Gum) 4 mg BUCCAL Q2H PRN PRN Reason: Nicotine Cravings Last Admin: 08/13/25 08:28 Dose: 4 mg Nicotine Polacrilex (Nicotine Polacrilex Lozenge 2 Mg Lozenge) 2 mg BUCCAL Q2H PRN PRN Reason: Nicotine Cravings Thiamine HCl (Thiamine Hcl 100 Mg Tablet) 100 mg PO DAILY [facility] Last Admin: 08/13/25 08:25 Dose: 100 mg Trazodone HCl (Trazodone Hcl 50 Mg Tablet) 50 mg PO BEDTIME MRX1 PRN PRN Reason: Insomnia Allergies Allergies Allergy/AdvReac Type Severity Reaction Status Date / Time No Known Allergies Allergy Verified 08/12/25 13:34 Assessment & Plan Assessment & Plan (1) MDD (major depressive disorder), recurrent episode: Status: Acute Code(s): F33.9 - Major depressive disorder, recurrent, unspecified (2) Opioid use disorder: Status: Acute Code(s): F11.90 - Opioid use, unspecified, uncomplicated (3) Cocaine use disorder: Status: Acute Code(s): F14.90 - Cocaine use, unspecified, uncomplicated (4) Benzodiazepine abuse: Status: Acute Code(s): F13.10 - Sedative, hypnotic or anxiolytic abuse, uncomplicated (5) Homelessness: Status: Acute Code(s): Z59.00 - Homelessness unspecified Plan Patient is a 39 year old male with hx of MDD, opioid use d/o, cocaine use d/o and benzodiazapine d/o who presented to ER d/t suicidal ideation with a plan to overdose on benzodiazepines secondary to increased life stressors. Plan: CV 15 minute safety checks Continue home medications Obtain collateral Encourage groups [facility] protocol Addiction medicine consult Referral to outpatient psychiatric providers Referral to substance abuse program Discharge planning 08/13: Active on unit. social with peers. attending groups. Patient reports having withdrawal symptoms today; pt stated, I woke up today, sweating and with joint pain . He reports some anxiety. Focused on going to a substance abuse program; social service worker aware. denies SI/HI/VH/AH. denies any side effects from medications. He reports poor sleep last night. Continue tx plan. Patient educated on: diagnosis and medication risk/benefits Reason for continued inpatient stay Substantial Risk for: med/psych decompensation Time Spent With Patient Time: Total time managing care of this patient today _20___ minutes.
[2025-08-13] MEDS: Flu Vacc TS2025-26(6mo up)/PF 0.5 ML SYRINGE IM (10:26)
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
[2025-08-13] MEDS: Lidocaine 4 % Patch ADH..PATCH 1 PATCH TRANSDERMA (16:40)
[2025-08-13 20:00] VITALS: BP 124/75; PULSE 56; RESP 18; TEMP 36.6; O2SAT 98
[2025-08-14 07:00] VITALS: BMI 31.5
[2025-08-14 08:00] VITALS: BP 132/71; PULSE 62; RESP 16; TEMP 36.6; O2SAT 97
[2025-08-14] MEDS: methADONE HCl 20 MG/2 ML ORAL.CONC 60 MG PO (08:10)
[2025-08-14] MEDS: Nicotine 21 MG PATCH.TD24 TRANSDERMA (08:41)
--- NOTE | 2025-08-14 10:06 | HO.PSYCHPN ---
Subjective Subjective Date of Service: 08/14/25 Reason For Visit: Unspecified Depressive Disorder Unspecified Anxiet Subjective Notes: Conditional Voluntary Interim History: Patient reports feeling depressed with a little anxiety today; he reports having a phone intake for a substance abuse program and hoping he is accepted to program. Patient reports sleeping better last night. denies SI/HI/VH/AH. Focused on going to a substance abuse program. Continue tx plan. Medication Compliance: Yes Side effects from medications: No Attending Groups: Yes Mental Status Exam Mental Status Exam Narrative: Pt is alert and oriented; behavior is cooperative and calm; dressed in casual attire; mood is described as depressed and anxious ; eye contact appropriate; Speech is normal rate, volume and not pressured; thought process is organized; Thought content is on tx; denies SI/HI/VH/AH. Diagnostics Vital Signs (24Hr): Vital Signs - 24 hr 08/13/25 20:00 08/14/25 08:00 Temperature 97.8 F 97.9 F Pulse Rate 56 62 Respiratory Rate 18 16 Blood Pressure 124/75 132/71 Pulse Oximetry 98 97 Oxygen Delivery Method Room Air Room Air BMI result Body Mass Index 31.5 Labs 08/13/25 07:58 Labs: Laboratory Results - last 48 hr 08/13/25 08/13/25 08/13/25 07:58 07:58 07:58 Sodium 140 Potassium 4.3 Chloride 107 Carbon Dioxide 26 Anion Gap 11 L BUN 9 Creatinine 0.94 Cancelled Estim Creat Clear Calc 136.1 Cancelled Estimated GFR > 60 Random Glucose Estimat Average Glucose Hemoglobin A1c % Calcium Total Bilirubin AST ALT Alkaline Phosphatase Total Protein Albumin Triglycerides Cholesterol LDL Cholesterol, Calc HDL Cholesterol 08/13/25 07:58 Sodium Potassium Chloride Carbon Dioxide Anion Gap BUN Creatinine Estim Creat Clear Calc Estimated GFR Cancelled Random Glucose 87 Estimat Average Glucose 128 Hemoglobin A1c % 6.1 H Calcium 9.5 Total Bilirubin 0.4 AST 67 H ALT 96 H Alkaline Phosphatase 64 Total Protein 7.7 Albumin 4.6 Triglycerides 98 Cholesterol 150 LDL Cholesterol, Calc 92 HDL Cholesterol 39 L Medications Medications Current Medications Acetaminophen (Acetaminophen 325 Mg Tablet) 650 mg PO Q6H PRN PRN Reason: Headache/Pain, Scale 1-10 Last Admin: 08/14/25 09:51 Dose: 650 mg Al Hydroxide/Mg Hydroxide (Magnesium Hydrox/Alum Hydrox 30 Ml Oral.Susp) 30 ml PO Q6H PRN PRN Reason: Heartburn/Nausea Atorvastatin Calcium (Atorvastatin Calcium 20 Mg Tablet) 20 mg PO BEDTIME MAYRA On Hold: 08/13/25 21:00 Last Admin: 08/12/25 20:36 Dose: 20 mg Escitalopram Oxalate (Escitalopram Oxalate 20 Mg Tablet) 20 mg PO DAILY [facility] Last Admin: 08/14/25 08:42 Dose: 20 mg Hydroxyzine HCl (Hydroxyzine Hcl 25 Mg Tablet) 25 mg PO Q6H PRN PRN Reason: mild anxiety Last Admin: 08/13/25 20:38 Dose: 25 mg Lidocaine (Lidocaine 4 % Patch Adh..Patch) 1 patch TRANSDERMA DAILY PRN; Protocol PRN Reason: back pain Last Admin: 08/13/25 16:40 Dose: 1 patch Lorazepam (Lorazepam 1 Mg Tablet) 1 mg PO Q2H PRN PRN Reason: CIWA 8-11 Last Admin: 08/14/25 09:51 Dose: 1 mg Lorazepam (Lorazepam 1 Mg Tablet) 2 mg PO Q2H PRN PRN Reason: CIWA 12-15 Lorazepam (Lorazepam 1 Mg Tablet) 3 mg PO Q2H PRN PRN Reason: CIWA > 15, and call Magnesium Hydroxide (Milk Of Magnesia 30 Ml Oral.Susp) 30 ml PO DAILY PRN PRN Reason: Constipation Melatonin (Melatonin 3 Mg Tablet) 3 mg PO BEDTIME PRN PRN Reason: Insomnia Last Admin: 08/13/25 20:38 Dose: 3 mg Metformin HCl (Metformin Hcl 1,000 Mg Tablet) 1,000 mg PO BIDWM [facility] Last Admin: 08/14/25 08:41 Dose: 1,000 mg Methadone HCl (Methadone Hcl 20 Mg/2 Ml Oral.Conc) 60 mg PO DAILY@0800 [facility] Last Admin: 08/14/25 08:10 Dose: 60 mg Mirtazapine (Mirtazapine 15 Mg Tablet) 15 mg PO BEDTIME [facility] Last Admin: 08/13/25 20:26 Dose: 15 mg Nicotine (Nicotine 21 Mg Patch.Td24) 21 mg TRANSDERMA DAILY [facility] Last Admin: 08/14/25 08:41 Dose: 21 mg Nicotine Polacrilex (Nicotine Polacrilex 2 Mg Gum) 4 mg BUCCAL Q2H PRN PRN Reason: Nicotine Cravings Last Admin: 08/14/25 09:53 Dose: 4 mg Nicotine Polacrilex (Nicotine Polacrilex Lozenge 2 Mg Lozenge) 2 mg BUCCAL Q2H PRN PRN Reason: Nicotine Cravings Ondansetron HCl (Ondansetron Odt 8 Mg Tab.Rapdis) 8 mg TRANSLINGU Q12H PRN PRN Reason: Nausea and Vomiting Thiamine HCl (Thiamine Hcl 100 Mg Tablet) 100 mg PO DAILY MAYRA Last Admin: 08/14/25 08:41 Dose: 100 mg Trazodone HCl (Trazodone Hcl 50 Mg Tablet) 50 mg PO BEDTIME MRX1 PRN PRN Reason: Insomnia Allergies Allergies Allergy/AdvReac Type Severity Reaction Status Date / Time No Known Allergies Allergy Verified 08/12/25 13:34 Assessment & Plan Assessment & Plan (1) MDD (major depressive disorder), recurrent episode: Status: Acute Code(s): F33.9 - Major depressive disorder, recurrent, unspecified (2) Opioid use disorder: Status: Acute Code(s): F11.90 - Opioid use, unspecified, uncomplicated (3) Cocaine use disorder: Status: Acute Code(s): F14.90 - Cocaine use, unspecified, uncomplicated (4) Benzodiazepine abuse: Status: Acute Code(s): F13.10 - Sedative, hypnotic or anxiolytic abuse, uncomplicated (5) Homelessness: Status: Acute Code(s): Z59.00 - Homelessness unspecified Plan Patient is a 39 year old male with hx of MDD, opioid use d/o, cocaine use d/o and benzodiazapine d/o who presented to ER d/t suicidal ideation with a plan to overdose on benzodiazepines secondary to increased life stressors. Plan: CV 15 minute safety checks Continue home medications Obtain collateral Encourage groups [facility] protocol Addiction medicine consult Referral to outpatient psychiatric providers Referral to substance abuse program Discharge planning 08/13: Active on unit. social with peers. attending groups. Patient reports having withdrawal symptoms today; pt stated, I woke up today, sweating and with joint pain . He reports some anxiety. Focused on going to a substance abuse program; forensic social worker aware. denies SI/HI/VH/AH. denies any side effects from medications. He reports poor sleep last night. Continue tx plan. 08/14: Patient reports feeling depressed with a little anxiety today; he reports having a phone intake for a substance abuse program and hoping he is accepted to program. Patient reports sleeping better last night. denies SI/HI/VH/AH. Focused on going to a substance abuse program. Continue tx plan. Patient educated on: diagnosis and medication risk/benefits Reason for continued inpatient stay Substantial Risk for: med/psych decompensation Time Spent With Patient Time: Total time managing care of this patient today _20___ minutes.
[2025-08-14 12:30] VITALS: BP 135/82; PULSE 95; RESP 18; O2SAT 97
[2025-08-14 16:30] VITALS: BP 131/80; PULSE 73; RESP 16; TEMP 36.6; O2SAT 97
[2025-08-14 20:00] VITALS: BP 144/73; PULSE 70; RESP 18; TEMP 36.6; O2SAT 99
[2025-08-15 07:51] VITALS: BP 131/78; PULSE 60; RESP 20; TEMP 36.6; O2SAT 99
[2025-08-15] MEDS: methADONE HCl 20 MG/2 ML ORAL.CONC 60 MG PO (07:54)
[2025-08-15] MEDS: Nicotine 21 MG PATCH.TD24 TRANSDERMA (08:28)
[2025-08-15] MEDS: Lidocaine 4 % Patch ADH..PATCH 1 PATCH TRANSDERMA (09:17)
--- NOTE | 2025-08-15 09:34 | P.DS_ITS ---
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 Has provider been notified: No Attending physician on discharge: Reece Guadarrama Discharging clinician: Debo Licona DS: Diagnosis Discharge Diagnosis (1) MDD (major depressive disorder), recurrent episode: Status: Acute (2) Opioid use disorder: Status: Acute (3) Cocaine use disorder: Status: Acute (4) Benzodiazepine abuse: Status: Acute (5) Homelessness: Status: Acute DS: Medications Discharge Medications Home Medications: Home Medications ?Medication ?Instructions ?Recorded ?Confirmed atorvastatin 20 mg tablet 20 mg PO BEDTIME 08/12/25 escitalopram oxalate 20 mg tablet 20 mg PO DAILY 08/1208/12/25 insulin glargine 100 unit/mL (3 10 unit subcut BEDTIME 08/12/25 08/12/25 mL) subcutaneous pen (Lantus Solostar U-100 Insulin) melatonin 3 mg tablet 3 mg PO BEDTIME PRN insomnia 08/12/25 08/12/25 metformin 1,000 mg tablet 1,000 mg PO BID 08/12/2511/05 methadone 10 mg/mL oral 60 mg PO DAILY 08/12/2511/05 concentrate (Methadone Intensol) mirtazapine 15 mg tablet 15 mg PO BEDTIME 08/12/25 Mental Status Exam Mental Status Exam Narrative: Pt is alert and oriented; behavior is cooperative and calm; dressed in casual attire; mood is described as good ; eye contact appropriate; Speech is normal rate, volume and not pressured; thought process is organized; Thought content is on tx; denies SI/HI/VH/AH. Data Data Completed and Pending Completed studies during hospitalization [Text1]: 08/13/25 08/13/25 08/13/25 07:58 07:58 07:58 Sodium 140 Potassium 4.3 Chloride 107 Carbon Dioxide 26 Anion Gap 11 L BUN 9 Creatinine 0.94 Cancelled Estim Creat Clear Calc 136.1 Cancelled Estimated GFR > 60 Random Glucose Estimat Average Glucose Hemoglobin A1c % Calcium Total Bilirubin AST ALT Alkaline Phosphatase Total Protein Albumin Triglycerides Cholesterol LDL Cholesterol, Calc HDL Cholesterol 08/13/25 07:58 Sodium Potassium Chloride Carbon Dioxide Anion Gap BUN Creatinine Estim Creat Clear Calc Estimated GFR Cancelled Random Glucose 87 Estimat Average Glucose 128 Hemoglobin A1c % 6.1 H Calcium 9.5 Total Bilirubin 0.4 AST 67 H ALT 96 H Alkaline Phosphatase 64 Total Protein 7.7 Albumin 4.6 Triglycerides 98 Cholesterol 150 LDL Cholesterol, Calc 92 HDL Cholesterol 39 L DS: Summary Hospital Course Hospital Course: Patient is a 39 year old male with hx of MDD, opioid use d/o, cocaine use d/o and benzodiazapine d/o who presented to ER d/t suicidal ideation with a plan to overdose on benzodiazepines secondary to increased life stressors. Per crisis report, patient presented to ER due to suicidal ideation with a plan to overdose on benzodiazepines. Patient reports he has acted on suicidal ideation before. Previously hospitalized in [facility]. Patient reports he took [address] and each of 5mg tablets for a total of 25 mg. Denies IV drug use. Reports frequent Xanax use that he purchases from the street. Denies HI/VH/AH. Patient was taken to [facility] by his ex partner after being found by her wandering on the streets. Patient reported they had an argument about a week ago which is when he was unable to stay with her and has been staying with a friend in the [facility]. Patient reports he has been having increased depression and life stressors such as relapsed, and secure housing and relationship issues. Patient reports he has not taken medications in about he denied current SI and stated that he will not harm himself however he feels he would benefit from getting his meds re-evaluated and working on his mental health. Patient's ex partner reported patient was in a sober home until he was kicked out 3 days ago for relapsing. patient had broken up with ex-partner a year ago after he cheated on her but they still communicate daily. During admission assessment, pt presents alert and oriented x3. Calm and cooperative. Patient reports feeling depressed; pt stated, I was feeling suicidal because things are not working out between me and my and my living situation. I let her down and myself down. I relapsed with a person from work and it went south from there . Patient reports he has been using 2 bundles of heroin IV daily, cocaine twice a week and taking 2 Xanax daily for the past coup le weeks . He currently denies any withdrawal symptoms; pt stated, I've been at [facility] for 3 days so I'm not withdrawing anymore ; pt placed on [facility] protocol for possible benzodiazepine withdrawal. Addiction medicine consult placed for monomer recovery supervisor. Patient reports he has not taken his psychiatric medications for the past week d/t relapse and not having outpatient providers. He denies hx of SA/SIB. denies SI/HI/VH/AH. Patient reports he is interested in going to a substance abuse program for treatment. Plan: CV 15 minute safety checks Continue home medications Obtain collateral Encourage groups [facility] protocol Addiction medicine consult Referral to outpatient psychiatric providers Referral to substance abuse program Discharge planning Active on unit. social with peers. attending groups. Patient reports having withdrawal symptoms today; pt stated, I woke up today, sweating and with joint pain . He reports some anxiety. Focused on going to a substance abuse program; clinical social work aide aware. denies SI/HI/VH/AH. denies any side effects from medications. He reports poor sleep last night. Continue tx plan. Patient reports feeling depressed with a little anxiety today; he reports having a phone intake for a substance abuse program and hoping he is accepted to program. Patient reports sleeping better last night. denies SI/HI/VH/AH. Focused on going to a substance abuse program. Continue tx plan. Patient reports feeling good today; denies SI/HI/VH/AH. Pt reports he is happy he got accepted into a program ; per clinical social work aide, pt was accepted to [facility]. Patient reports he plans on following up with outpatient providers. Status at Discharge Cognitive/behavioral status at discharge: Patient has insight and demonstrates good judgment in terms of wanting to pursue treatment. Patient has a safety plan that includes presenting to the closest ER or calling 911 if feeling unsafe. Functional status at discharge: independent ambulation Overall status at discharge: patient is back to baseline Time Spent with Patient Time attestation: Total time managing care of this patient today _20___ minutes. Time spent: Less than 30 minutes Discharge Plan Discharge Anticipated Discharge Date/Time: 08/15/25 11:00 Patient Disposition: Home, Self-Care Discharge Diagnosis: MDD, opioid use d/o, cocaine use d/o, benzodiazepine abuse. Referrals: [facility] [Provider Group] - 1 Week Referral Note: 08-15-25 [facility] was added to patients chart. Please call [phone] to schedule a follow up appt within 7-10 days of discharge. No release or PCP on file. Discharge Medications: New hydroxyzine HCl 25 mg Tablet 25 mg PO BID PRN (Reason: mild anxiety) 30 Days Qty: 60 0RF Continued methadone [Methadone Intensol] 10 mg/mL Concentrate 60 mg PO DAILY melatonin 3 mg tablet 3 mg PO BEDTIME PRN (Reason: insomnia) 30 Days Qty: 30 0RF metformin 1,000 mg tablet 1,000 mg PO BID 30 Days Qty: 60 0RF mirtazapine 15 mg tablet 15 mg PO BEDTIME 30 Days Qty: 30 0RF escitalopram oxalate 20 mg tablet 20 mg PO DAILY 30 Days Qty: 30 0RF Discontinued atorvastatin 20 mg tablet 20 mg PO BEDTIME insulin glargine [Lantus Solostar U-100 Insulin] 100 unit/mL (3 mL) insulin pen 10 unit subcut BEDTIME Discharge Orders: Discharge Order (Routine); Ordered 08/15/25 Ordered By: Debo Licona Diet: Regular diet Activity on Discharge: As tolerated Stand Alone Forms: Patient Portal Discharge page, Community Support Print Language: Cuban Care Plan Goals: Maintain mood and safe behaviors Take medications as prescribed Continue to pursue sobriety Practice coping skills Continue with outpatient providers and reach out to them as needed Health Concerns: Mood stability and behaviors Sobriety Plan of Treatment: Follow up with your PCP, psychiatric provider and other outpatient providers regarding above concerns Take medications as prescribed Assessment: Patient has insight and demonstrates good judgment in terms of wanting to pursue treatment. Patient has a safety plan that includes presenting to the closest ER or calling 911 if feeling unsafe. Discharge Date/Time: 08/15/25 10:50
[2025-08-15] MEDS: Naloxone HCl Nasal TAKE HOME 4 MG SPRAY 8 MG NOSTRILALT (10:12)
== END 2025-08-15 10:50 | disposition home or self-care (01) | DRG 751 ==
LOC: HO.PM5 13:18 → HO.PADLT16 13:25
PROVIDERS: Admitting Provider Psychiatry & Neurology Psychiatry; Responsible Provider Registered Nurse; Visit Provider Psychiatry & Neurology Psychiatry
DX: F33.9 Major depressive disorder, recurrent, unspecified (principal); E11.9 Type 2 diabetes mellitus without complications; E78.5 Hyperlipidemia, unspecified; F11.20 Opioid dependence, uncomplicated; F17.210 Nicotine dependence, cigarettes, uncomplicated; Z71.6 Tobacco abuse counseling; Z23 Encounter for immunization; F13.10 Sedative, hypnotic or anxiolytic abuse, uncomplicated; Z59.02 Unsheltered homelessness; Z79.899 Other long term (current) drug therapy
CPT/HCPCS: 36415; 80053; 80061; 82565; 83036; 90656

== ENCOUNTER → 2025-08-12 13:06 | Outpatient (BNV) | payer OTHER, SELFPAY | PROVIDERS: Admitting Provider Psychiatry & Neurology Psychiatry; Responsible Provider Registered Nurse; Visit Provider Registered Nurse | DX: F33.2 Major depressive disorder, recurrent severe without psychotic features (principal); F13.10 Sedative, hypnotic or anxiolytic abuse, uncomplicated; F11.90 Opioid use, unspecified, uncomplicated; F14.90 Cocaine use, unspecified, uncomplicated; Z59.00 Homelessness unspecified | CPT/HCPCS: 90792; 99231; 99232; 99238 ==

== ENCOUNTER → 2025-08-12 13:06 | Outpatient (BNV) | payer OTHER, SELFPAY | PROVIDERS: Admitting Provider Psychiatry & Neurology Psychiatry; Responsible Provider Registered Nurse; Visit Provider Nurse Practitioner Family | DX: E11.9 Type 2 diabetes mellitus without complications (principal) | CPT/HCPCS: 99221 ==